=== PATIENT | female | born 1975 | race Caucasian/White ===

== ENCOUNTER → 2024-03-10 | Outpatient (CLI) | payer OTHER, SELFPAY ==
--- NOTE | 2024-03-10 | EMB_PTH ---
PATIENT: CHRIS ARITA LOC: [facility] #:[id number] AGE/SX: 48/F ROOM: RE03/10/[address]: MENDY [place] : 1975 BED: DIS: 03/10/2024 SPEC #: [id number] RECD: 03/10/24 14:41 STATUS: LAURA DAYO #: [id number] GILES: 03/10/24 00:[address]: Larisa Davis NP DEPT: SURGICAL PATHOLOGY RECD BY: Charbel Syed Tissues: Endometrium, NOS Procedures: Surgery Specimen Level IV HEADER OPERATION: Endometrial biopsy PRE-OP DIAGNOSIS: Postmenopausal bleeding- taking Provera TISSUE SUBMITTED: Endometrial lining MICROSCOPIC DIAGNOSIS Endometrium biopsy: Simple endometrial hyperplasia without atypia. LAW/ 03/14/2024 MICROSCOPIC DESCRIPTION Slides are reviewed. GROSS DESCRIPTION Received is one container labeled with the patient's name and not further designated. The specimen consists of multiple irregular fragments of delarosa-brown soft tissue that in aggregate measure 5.0 x 3.0 x 0.8 cm. The specimen is totally submitted in five cassettes. LAW/ 03/11/2024 TC:5 CPT:57312
== END | disposition home or self-care (01) ==
LOC: LABSPEC 14:48
PROVIDERS: Referring Provider Nurse Practitioner Women's Health; Visit Provider Nurse Practitioner Women's Health
DX: Z12.4 Encounter for screening for malignant neoplasm of cervix (principal); N95.0 Postmenopausal bleeding; N85.01 Benign endometrial hyperplasia
CPT/HCPCS: 88305

== ENCOUNTER → 2025-01-17 | Outpatient (CLI) | payer OTHER, SELFPAY ==
--- NOTE | 2025-01-17 13:17 | EMB_PTH ---
PATIENT: CHRIS ARITA LOC: [facility] U#:[id number] AGE/SX: 49/F ROOM: RE01/17/[address]: MENDY [place] : 1975 BED: DIS: 01/17/2025 SPEC #: [id number] RECD: 01/17/25 15:22 STATUS: LAURA DAYO #: [id number] GILES: 01/17/25 13:[address]: Larisa Davis NP DEPT: SURGICAL PATHOLOGY RECD BY: Wilian Miranda Tissues: A - Endometrium, NOS Procedures: Surgery Specimen Level IV HEADER OPERATION: Endometrial biopsy PRE-OP DIAGNOSIS: Abnormal uterine bleeding TISSUE SUBMITTED: A- Endometrial lining MICROSCOPIC DIAGNOSIS A. Uterus, endometrial lining, biopsy: * Inactive endometrium with decidualized stromal alteration and breakdown compatible with hormonal therapy effect MICROSCOPIC DESCRIPTION Slides are reviewed. GROSS DESCRIPTION A. Received in formalin in a container labeled with the patient's name, date of , and with no further designation are multiple red-delarosa fragments of soft tissue admixed with blood and mucus measuring 2.8 x 1.2 x 0.4 cm in aggregate. Submitted in toto in A1. [facility] 01-18-2025 CPT:53563
== END | disposition home or self-care (01) ==
LOC: LABSPEC 14:55
PROVIDERS: Referring Provider Nurse Practitioner Women's Health; Visit Provider Nurse Practitioner Women's Health
DX: N93.9 Abnormal uterine and vaginal bleeding, unspecified (principal)
CPT/HCPCS: 88305

== ENCOUNTER 2025-03-28 12:20 | Day surgery (SDC) | payer SELFPAY, OTHER ==
--- NOTE | 2025-02-21 10:03 | EKG12_ITS ---
Test Reason : PREOP Blood Pressure : */* mmHG Vent. Rate : 49 BPM Atrial Rate : 49 BPM P-R Int : 146 ms QRS Dur : 90 ms QT Int : 438 ms P-R-T Axes : 51 -12 59 degrees QTcB Int : 395 ms Marked sinus bradycardia Abnormal ECG Confirmed by Jim Brenner ([id number]), primer expeditor and drier ROCÍO ESPAÑA ([id number]) on 02/22/2025 10:14:27 AM Referred By: Alissa Hartley Confirmed By: Jim Brenner
[2025-02-21 10:33] LABS: Hematocrit 41.9 % (37-47); Hemoglobin 14.1 g/dL (12.0-15.0); Immature Granulocytes Count 0.020 X10^3/uL (0.0-0.0); Mean Corp Hgb Conc 33.7 g/dL (32-36); Mean Corpuscular Volume 88.0 fL (81-99); Mean Platelet Vol. 10.3 fl (6.2-12.0); NRBC Flagged by Analyzer 0 % (0-5); Platelet Count 250 K/mm3 (150-450); RBC Distribution Width CV 13.2 % (11.6-14.6); RBC Distribution Width SD 42.5 fl (35.1-43.9); Red Blood Count 4.76 M/mm3 (4.2-5.4); White Blood Count 5.5 K/mm3 (4.4-11.0)
[2025-02-21 11:24] LABS: AST(SGOT) 23 U/L (<=31); Alanine Aminotransfer ALT/SGPT 21 U/L (<=34); Albumin, Serum 4.6 g/dL (3.5-5.0); Alkaline Phosphatase 58 U/L (35-104); Anion Gap 11 (5-15); BUN 13 mg/dL (4-19); BUN/Creat Ratio 14.6 RATIO (10-20); Calcium,Total 9.7 mg/dL (7.6-11.0); Carbon Dioxide 24.6 mmol/L (21.0-32.0); Chloride 104 mmol/L (98-108); Globulin 2.7 g/dL (2.2-4.2); Glucose 82 mg/dL (70-99); Potassium 3.9 mmol/L (3.3-5.1)
[2025-03-28] VITALS (7 sets, daily range): BP systolic 132–141; BP diastolic 82–90; PULSE 59–67; RESP 16–20; TEMP 36.1–36.4; O2SAT 93–98; BMI 34.2
--- NOTE | 2025-03-28 12:17 | HP.PCM_ITS ---
History and Physical Date of Admission: 03/28/25 Intake Vital Signs 01/17/2513:05 02/16/2511:58 Height 5 ft 8 in 5 ft 8 in Weight: 219 lb 2 oz 219 lb 8 oz BMI 33.3 33.3 BP 166/100 H 170/96 H Intake Visit Reasons: surgical consult Player Manager Required: No Is patient in pain?: No Allergies No Known Allergies Allergy (Verified 02/16/25 12:04) Post menopausal: No Patient : No : No PFSH Medical History Breast abscess Endometriosis Surgical History S/P D&C (status post dilation and curettage) Family History Mother Breast cancer Social History adopted: No household members: spouse and children housing: house number of children: 4 current occupational status: unemployed pets and animals: Yes pets and animals: dog(s) history of recent travel: No sexually active: Yes Smoking Status: Never smoker second hand exposure: No alcohol intake: current alcohol intake frequency: a few times a week Alcohol type: wine substance use type: does not use well-balanced diet: daily or most days caffeine: Yes Type: coffee Number of servings: 2 what type of physical activity do you participate in: walking frequency: 3-4 times per week do you feel safe at home: Yes HPI surgical consult Details: CHRIS ARITA is a 49 year old who presents for persistent irregular bleeding. she had hyperplasia diagnosed last year and was treated with megace, but still has had irregular bleeding despite the therapy and the lining is thickened. repeat EMB was normal. she denies any pelvic pain or pressure or prolapse. Female Reproductive History Menopausal Symptoms: No night sweats History 4 Elective abortions Hx Para 4 Spontaneous abortions Hx # Term Pregnancies Ectopic pregnancies Hx # Pregnancies Multiple births # of living children Past Pregnancies Del. Date Name GA/Weeks Outcome Route Bth Weight Gen Labor Lgth Anesthesia Del Locatn Provider FOB Unknown [place] Unknown [place] Unknown Judith Unknown [place] ROS Const Constitutional: Denies fatigue, night sweats, weight gain or weight loss ENT ENT: Reports system reviewed and no additional complaints, except as documented Details: co headaches Cardio Card: Denies chest pain Resp Resp: Reports dyspnea; Denies cough GI GI: Reports as per HPI; Denies abdominal pain, constipation, nausea or vomiting : Denies nipple discharge, urinary frequency, urinary incontinence, urinary hesitancy, urinary urgency, vaginal discharge, vaginal dryness, vaginal odor or vaginal pruritus Musc Musc: Denies arthralgias, back pain or muscle weakness Skin Skin/Breast: Denies alopecia, change in hair, dry skin, breast mass, breast pain, breast skin changes or nipple discharge Neuro Neuro: Reports system reviewed and no additional complaints, except as documented Psych Psych: Reports system reviewed and no additional complaints, except as documented Endo Endo: Denies cold intolerance, excessive sweating, heat intolerance or polydipsia Joseph/Lymph Hematologic/Lymphatic: Denies easy bleeding, Denies easy bruising and Denies lymphadenopathy Exam Const General: cooperative, healthy appearing, comfortable and no acute distress Orientation: alert [facility] Head: normal to inspection and normocephalic Ears: hearing grossly normal bilaterally and external ears normal Nose: external nose normal and nares normal Face and sinus: normal facial exam Neck Neck: normal visual inspection and no lymphadenopathy Thyroid: thyroid normal Chest Chest palpation & inspection: normal inspection of the chest Resp Effort & Inspection: normal respiratory effort Auscultation: clear to auscultation bilaterally Cardio Rate: regular rate Rhythm: regular rhythm Heart Sounds: S1 normal and S2 normal GI Inspection: normal to inspection and non-distended Palpation: soft and no hepatosplenomegaly Musc Other: gross motor intact no deficits, full bilateral strength Skin General: no rashes or lesions noted Neuro General: patient alert, patient awake, moves all extremities and no focal motor deficits Motor: muscle tone normal throughout Extrem General: normal to inspection and no pedal edema Psych Appearance: grossly normal Mental Status: mental status grossly normal Affect: normal affect Speech and Movement: speech and movement normal Coding Level of Care Code Off vis,est,level 4 Diagnoses Abnormal uterine bleeding N93.9 Endometrial hyperplasia without atypia N85.00 Hypertension I10 Assessment and Plan Assessment and Plan (1) Abnormal uterine bleeding: Status: Acute Comment: US:20mm lining, EMB hyperplasia. persistent bleeding after hyperplasia treatment. (2) Endometrial hyperplasia without atypia: Status: Acute Comment: s/p megace. needs d and c hysteroscopy, to be both diagnostic and possibly therapeutic, wait 1-2 months after d and c and if still persistent bleeding consider IUD or hysterectomy. not an ablation candidate due to history of hyperplasia (3) Hypertension: Status: Chronic Comment: needs medical clearance Medications: Discontinued megestrol Discontinued Reason: Order Completed 40 mg PO BID 90 tabs 1RF Plan After discussing the patient's diagnosis and treatment plan options, patient wishes to proceed with surgical management. I have discussed with the patient the risks, benefits, and alternatives of the procedure which include but are not limited to risks of anesthesia, bleeding, infection, possible damage to bowel, bladder, or surrounding vasculature which could lead to additional surgery to evaluate any complications. Patient agrees to procedure and wishes to proceed. ACOG/uptodate references given for additional information regarding procedure.
[2025-03-28 12:46] LABS: Internal QC Validated? YES +Cl - CLEAR BKGD; Pregnancy, Urine Negative Negative; Record Kit Lot#,Urine Preg 962302
[2025-03-28] MEDS: Lactated Ringers 1,000 ML 15 ML IV (12:55)
--- NOTE | 2025-03-28 13:10 | PRE.ANES_ITS ---
ASA Classification* ASA Classification ASA Classification: 2 Assessment & Plan Anesthesia* Anesthesia Assessment Anesthesia Assessment: Discussed sedation and/or anesthesia options, risks, benefits, and alternatives with patient/parents/legal guardian/POA. Questions invited. The patient/parents/legal guardian/POA seems to understand and agrees to proceed with anesthesia plan. Reviewed the physical assessment, medical history, allergy history and patient home medications list prior to surgery/procedure/anesthetic and documented any changes. Performed airway and anesthesia risk assessments. Anesthesia Type Anesthesia Type: MAC History Source History Obtained from:: Patient and Chart Anesthesia Focused Assessment* Temperature: 97.5 F Pulse Rate: 67 Blood Pressure: 141/82 Respiratory Rate: 16 Pulse Ox: 98 Oxygen Delivery Method: Room Air Airway Assessment Mouth opens: >3 cm Mallampati Score: III Teeth Condition: Chipped/Broken (Patient has a couple chipped teeth.) and Missing (Patient has several missing teeth. All else are tight.) Neck Range of motion (ROM): Full ROM Labs Anesthesia Preop lab: CBC WBC 5.5 K/mm3 (4.4-11.0) 02/21/25 10:02/21/25 RBC 4.76 M/mm3 (4.2-5.4) 02/21/25 10:02/21/25 Hgb 14.1 g/dL (12.0-15.0) 02/21/25 10:02/21/25 Hct 41.9 % (37-47) 02/21/25 10:02/21/25 Plt Count 250 K/mm3 (150-450) 02/21/25 10:02/21/25 CHEMISTRY Potassium 3.9 mmol/L (3.3-5.1) 02/21/25 10:02/21/25 Sodium 140 mmol/L (133-145) 02/21/25 10:02/21/25 BUN 13 mg/dL (4-19) 02/21/25 10:02/21/25 Creatinine 0.91 mg/dL (0.70-1.20) 02/21/25 10:02/21/25 Glucose 82 mg/dL (70-99) 02/21/25 10:02/21/25 COAG Urine Test Negative Negative 03/28/25 12:30 03/28/25 Tst Clinic Negative 01/17/25 13:20 01/17/25 Pre-Assessment Diagnosis/Proposed Procedure Planned Operative Procedure(s): Hysteroscopy,Dilation and Curettage Anesthesia History Anesthesia History - wellness specialist: Anesthesia History - wellness specialist Hx Hospitalization No 03/14/25 09:04 Any Problems With Anesthesia No 03/14/25 09:04 Cholinesterase deficiency No 03/14/25 09:04 You/Your Family Experience No 03/14/25 09:04 fever (hyperthermia) with Relationship Recent Exposure to Contagious No 03/28/25 12:50 Disease Does patient have nerve No 03/14/25 09:04 stimulator Patient instructed to have device shut off --Does patient have Pacemaker No 03/28/25 12:50 or ICD? When Was Last Pacemaker Check QUESTION #4 FULL TEXT: You/Your Family Experience fever (hyperthermia) with Anesthesia Last Oral Intake Last Oral intake: Last Oral Intake NPO since 20:00 03/28/25 12:50 Meds taken in AM with sips of Yes 03/28/25 12:50 water? Meds patient instructed to amlodipine 03/28/25 12:50 take am of surgery Any additional information?: Yes NPO since: 06:00 (Patient took amlodipine with sip of water at 6 AM.) Meds taken in AM with sips of water?: Yes PONV PONV - wellness specialist: PONV - wellness specialist Female Yes 03/14/25 09:04 HX of Motion Sickness No 03/14/25 09:04 HX of N/V After Surgery No 03/14/25 09:04 Non-Smoker No 03/14/25 09:04 Duration of Surgery greater No 03/14/25 09:04 than 60 minutes Number of Risk Factors 1 03/14/25 09:04 PONV Score Low Risk 03/14/25 09:04 Height & Weight Height & Weight: Anesthesia: Height & Weight Height 5 ft 8 in 03/28/25 12:50 Weight: 102 kg 03/28/25 12:50 Body Mass Index (BMI) 34.2 03/28/25 12:50 Respiratory Assessment Respiratory Assessment - wellness specialist: Respiratory Tract Infection Hx - wellness specialist Hx Respiratory Tract Infection No 03/14/25 09:04 STOP Sleep Apnea STOP Sleep Apnea - wellness specialist: STOP Sleep Apnea - wellness specialist Hx Hypertension No 03/14/25 09:04 Hx Sleep Apnea No 03/14/25 09:04 CPAP BIPAP Do you snore loudly (louder No 03/14/25 09:04 than talking or can be heard Do you often feel tired/ No 03/14/25 09:04 fatigued/ sleepy during daytime? Has anyone observed you stop No 03/14/25 09:04 breathing during sleep? STOP Results Negative 03/14/25 09:04 QUESTION #5 FULL TEXT : Do you snore loudly (louder than talking or can be heard through closed doors)? Tobacco Use History Tobacco Use History - wellness specialist: Tobacco Use History - wellness specialist Tobacco Use Smoking Status Never smoker 03/14/25 09:04 Hx Tobacco Use No 03/14/25 09:04 Years Smoking Packs Smoked per Day Smoking Cessation Date was within the last 15 years Hx Smoking Cessation Date Hx Smoking Cessation Counseling Hematologic Medial History Hematologic Hx - wellness specialist: Hematologic Medical Hx - chart collector Hx of Blood Transfusion No 03/14/25 09:04 Hx of Transfusion in last 3 No 03/14/25 09:04 Months Date of Last Transfusion (if within last 3 months) Ever experience any problems No 03/14/25 09:04 with transfusion(s)? Specify any problems Hx of Preganancy in last 3 No 03/14/25 09:04 Months Nurse Filling Out Transfusion VCHRISTIN 03/14/25 09:04 & Questions: Date: 03/14/25 03/14/25 09:04 Time: 09:06 03/14/25 09:04 Patient unable to answer at this time (ie. confused, unrespo /Reproduction History /Reproductive History - wellness specialist: /Reproductive Hx- wellness specialist Hx Now No 03/14/25 09:04 Gestational Age (in weeks): EDC: Hx Hx Para Hx Section SAB No 03/14/25 09:04 Active Medications Active Medications: Current Medications Generic Name Dose Route Start Last Admin Trade Name Freq PRN Reason Stop Dose Admin Lactated Ringer's 1,000 mls @ 15 mls/hr 03/28/25 12:30 03/28/25 12:55 IV 15 mls/hr .Q48H NAIMA Administration PFSH Medical History (Updated 03/28/25 @ 15:[address] Alissa Hartley MD) Status post hysteroscopy Wears glasses Injury of head and neck Non-smoker Leg cramps Hypertension Breast abscess Endometriosis Home Medications ?Medication ?Instructions ?Recorded ?Last Taken ?Type amlodipine 5 mg tablet 5 mg PO DAILY 03/14/2503/28 History Allergy/AdvReac Type Severity Reaction Status Date / Time No Known Allergies Allergy Verified 03/28/25 12:48 Family History Mother Breast cancer Surgical History S/P D&C (status post dilation and curettage) Social History adopted: No household members: spouse and children housing: house number of children: 4 current occupational status: unemployed pets and animals: Yes pets and animals: dog(s) history of recent travel: No sexually active: Yes Smoking Status: Never smoker second hand exposure: No alcohol intake: current alcohol intake frequency: a few times a week Alcohol type: wine substance use type: does not use well-balanced diet: daily or most days caffeine: Yes Type: coffee Number of servings: 2 what type of physical activity do you participate in: walking frequency: 3-4 times per week do you feel safe at home: Yes Review of Systems (Anesthesia) ROS Narrative System reviewed and no additional complaints, except as documented.
--- NOTE | 2025-03-28 14:15 | EMB_PTH ---
PATIENT: CHRIS ARITA LOC: [facility] [place] U#:[id number] AGE/SX: 49/F ROOM: RE03/28/[address]: Dr. Alissa Hartley MD : 1975 BED: DIS: 03/28/2025 SPEC #: [id number] RECD: 03/28/25 16:31 STATUS: LAURA REBhupinder #: [id number] GILES: 03/28/25 14:[address]: Alissa Hartley DEPT: SURGICAL PATHOLOGY RECD BY: Wilian Miranda ENTERED: 03/29/25 09:01 SP TYPE: ENDOM BX/C SHER DR: Dr. Rodney Church MD Tissues: A - Endometrium, NOS Procedures: Surgery Specimen Level IV HEADER OPERATION: Hysteroscopy, D&C PRE-OP DIAGNOSIS: Abnormal uterine bleeding, endometrial hyperplasia without atypia TISSUE SUBMITTED: A- Endometrial curettings MICROSCOPIC DIAGNOSIS A. Endometrium, hysteroscopy with dilation and curettage: * Proliferative endometrium * Endocervical tissue with slight chronic endocervicitis MICROSCOPIC DESCRIPTION Slides are reviewed. GROSS DESCRIPTION A. Received in formalin labeled with the patient's name and date of . Designated as endometrial curettings is a 2.8 x 2.8 x 0.3 cm aggregate of pink- red tissue fragments and clotted blood. Entirely submitted in 2 cassettes. IN 03/29/2025 CPT:92217
[2025-03-28] MEDS: Lidocaine 1% (20 ml mdv) 20 ML Vial (14:36)
--- NOTE | 2025-03-28 14:46 | PCM.OPRPT ---
Problems Associated Problem List Diagnoses (1) Hypertension: (2) Endometrial hyperplasia without atypia: (3) Abnormal uterine bleeding: (4) Status post hysteroscopy: Multi Select Codes Urinary/Genital Urinary/Genital CPT Codes: 44812 Hysteroscopy,EMC, Polypectomy Operative Report (Standard) Operative Information Date of Procedure: 03/28/25 Pre-Operative Diagnosis: see problem list comments Post-Operative Diagnosis: same Surgery/Procedure Performed: dilation and curettage hysteroscopy adjunct psychology instructor: No Type of Anesthesia: IV Sedation and Local RN Documented Start/Stop Times: Operation Date: 03/28/25 14:15 Case Time Into Pre-Op 03/28/25 12:27 Out of Pre-Op 03/28/25 14:33 Anesthesia Start 03/28/25 14:36 Into Room 03/28/25 14:36 Procedure Start Time: 15:51 Procedure Stop Time: 15:59 Select all DRAINS/GRAFTS/IMPLANTS that apply: None Estimated Blood Loss: 50 Specimen collected: Yes Description of specimen(s) removed: endometrial curretings Description of surgery: Patient was prepped and draped in a normal sterile fashion under MAC anesthesia. A weighted speculum was placed in the vagina and the anterior lip of the cervix was grasped with a single-tooth tenaculum. A paracervical block was placed with 1% lidocaine. Cervix was progressively dilated to allow passage of a 7 mm hysteroscope. The lining was fully visualized and noted to have thickened lining . Uterine sounded to 8 cm. Curettage was performed and moderate amount tissue removed , sent to pathology. All instruments were removed from the vagina and excellent hemostasis was noted. Patient was awoken and taken to recovery in stable condition. Surgical Findings: thickened endometrial lining Complications Complications: No
--- NOTE | 2025-03-28 14:46 | PCM.DC ---
Discharge Instructions DC O2, CPAP, BIPAP needs Home O2 Discharge instructions: No Dressing / Incision Discharge Activity: Return to Normal Activity, May Shower and May Take a Tub Bath (after 1 week) May resume sexual activity in: 1-2 weeks Weight Bearing Status: Weight bearing as tolerated Lifting Restrictions: none Dressing / Incision Call your doctor if you observe: Fever of 101 or Higher, Using more than 1 pad per hour, Shortness of breath and Uncontrolled pain Follow Up Care Please Follow Up With: Alissa Hartley MD When: Call [phone] to schedule appointment. Test Results: Test results from this visit will be discussed in further detail at your follow-up appointment, if applicable. Discharge Plan Admission Attending Provider: Alissa Hartley Primary Care Provider: Rodney Church Instructions Print Language: [place] Islander Discharge Orders/Prescriptions Prescriptions: No Action amlodipine 5 mg tablet 5 mg PO DAILY Referrals / Follow Up: Rodney Church MD [Primary Care Provider] - Disposition Disposition (needs filled in before D/C Order can be placed): Home, Self Care
--- NOTE | 2025-03-28 15:14 | PCM.POST.ANE ---
Anesthesia: Postop Eval I Current Vital Signs Temperature: 97.1 F Pulse Rate: 67 Blood Pressure: 133/82 Respiratory Rate: 20 Pulse Ox: 95 Oxygen Delivery Method: Room Air Assessment Airway patent: Yes Spontaneous unlabored respirations: Yes Mental status: Awake and Calm nausea: No Vomiting: No Anesthesia Complication: No Fluid Hydration Crystalloid volume administer (ml): 500 Total IV fluid infused: 500 Progress Note Anesthesia document: Postop Eval 1 completed: Yes
--- NOTE | 2025-03-28 19:20 | POSTOPAN2_ITS ---
Anesthesia Postop Eval I Sum Postop Eval Completion status Anesthesia document: Postop Eval 1 completed: Yes Anesthesia Postop Eval I Summary Anesthesia Postop Eval I Summary: Anesthesia Postop Eval I: Assessment Summary Airway patent Yes 03/28/25 15:15 [email or web address] Spontaneous unlabored Yes 03/28/25 15:15 [email or web address] respirations Mental status Awake,Calm 03/28/25 15:15 [email or web address] nausea No 03/28/25 15:15 [email or web address] Vomiting No 03/28/25 15:15 [email or web address] Anesthesia Postop Eval I: Fluid Summary Crystalloid volume administer 500 03/28/25 15:15 [email or web address] (ml) Colloids volume administered ( ml) Blood Product volume administered (ml) Total IV fluid infused 500 03/28/25 15:15 [email or web address] Anesthesia Postop Eval I: Summary Notes Anesthesia Complication No 03/28/25 15:15 [email or web address] Anesthesia Complication Comment: Post-operative progress note Anesthesia: Postop Eval II Evaluation Mental status: Awake and Calm Pain Level: 1 nausea: No Vomiting: No Complications Anesthesia Complication: No
--- NOTE | 2025-03-28 19:20 | PCM.POSTANE2 ---
Anesthesia Postop Eval I Sum Postop Eval Completion status Anesthesia document: Postop Eval 1 completed: Yes Anesthesia Postop Eval I Summary Anesthesia Postop Eval I Summary: Anesthesia Postop Eval I: Assessment Summary Airway patent Yes 03/28/25 15:15 DATA CENTER [email or web address] Spontaneous unlabored Yes 03/28/25 15:15 DATA CENTER [email or web address] respirations Mental status Awake,Calm 03/28/25 15:15 DATA CENTER [email or web address] nausea No 03/28/25 15:15 DATA CENTER [email or web address] Vomiting No 03/28/25 15:15 DATA CENTER [email or web address] Anesthesia Postop Eval I: Fluid Summary Crystalloid volume administer 500 03/28/25 15:15 DATA CENTER [email or web address] (ml) Colloids volume administered ( ml) Blood Product volume administered (ml) Total IV fluid infused 500 03/28/25 15:15 DATA CENTER [email or web address] Anesthesia Postop Eval I: Summary Notes Anesthesia Complication No 03/28/25 15:15 DATA [email or web address] Anesthesia Complication Comment: Post-operative progress note Anesthesia: Postop Eval II Evaluation Mental status: Awake and Calm Pain Level: 1 nausea: No Vomiting: No Complications Anesthesia Complication: No
== END 2025-03-28 16:15 | disposition home or self-care (01) ==
LOC: SDC 12:22 → AC 12:24
PROVIDERS: Anesthesiology; PCP Family Medicine; Referring Provider Obstetrics & Gynecology; Visit Provider Obstetrics & Gynecology
PROC: 0UDB8ZZ Extraction of Endometrium, Via Natural or Artificial Opening Endoscopic (ICD-10-PCS; CPT 58558; principal; 2025-03-28 14:05)
DX: N93.8 Other specified abnormal uterine and vaginal bleeding (principal); N85.01 Benign endometrial hyperplasia; N72 Inflammatory disease of cervix uteri; I10 Essential (primary) hypertension; Z79.899 Other long term (current) drug therapy
CPT/HCPCS: 58558; 00952; 36415; 80053; 81025; 85025; 86850; 86900; 86901; 88305; 93005

== ENCOUNTER → 2025-04-28 | Outpatient (CLI) | payer SELFPAY, OTHER ==
--- NOTE | 2025-04-28 08:00 | BI_ITS ---
EXAM: SCRN MAMM (CAD)W/PEPE BILAT DATE: 04/28/2025 CLINICAL HISTORY: F, Age 49 y/o , SCREENING MAMMOGRAM TECHNIQUE: SCRN MAMM (CAD)W/PEPE BILAT COMPARISON: No priors available. FINDINGS: TISSUE DENSITY: There are scattered areas of fibroglandular density. Bilateral Breast Mammographic Findings: No significant masses, calcifications or other abnormalities are identified. BI/SCRN MAMM (CAD)W/PEPE BILAT IMPRESSION: There is no mammographic evidence of malignancy. OVERALL FINAL ASSESSMENT BI-RADS 1: NEGATIVE. RECOMMENDATION: Routine annual follow-up in 1 Year A letter with findings and recommendations will be mailed to the patient. Reading Location: [id number]
--- OUTSIDE RECORDS SUMMARY | 2025-04-28 08:27 | XMS RPT_ITS | CCD ---
Author Organization [facility] CliniSy[facility] Care Team Providers Care Hair Machine Operator Name Role Phone MOOSE BERMEO Attending Unavailable CORKY MUHAMMAD Admitting Unavailable CORKY MUHAMMAD Primary Care Unavailable CORKY MUHAMMAD Attending Unavailable JOSE FRANCISCO SABA Consulting Unavailable JOSE FRANCISCO SABA Referring Unavailable PROVIDER, UNKNOWN Consulting Unavailable PROVIDER, UNKNOWN Consulting Unavailable PROVIDER, UNKNOWN Consulting Unavailable Ryan FALAFEL CART COOK-CLarisa Attending Provider Ryan FALAFEL CART COOK-CLarisa Referring Provider [phone] Odilia MILNER, Dr. Maxwell Attending Provider JEAN-CLAUDE MILNER, MARCIN Vazquez Unavailable MOOSE BERMEO MD Unavailable Josie Lundberg RN Unavailable Unavailable ANGEL CHASE Unavailable Unavailable Unavailable Unavailable HERO JACOB-CNATALIYA Unavailable GLENIS BURT RN Unavailable Unavailable Unavailable Unavailable Jean-Claude MILNER, Dr. Stevens Primary Care Provider Dr. Jim Brenner MD Attending Provider Dr. Alissa Hartley MD Referring Provider [phone] Dr. Alissa Hartley MD Other Provider Jean-Claude MILNER, Dr. Stevens Referring Provider [phone] Alissa Hartley Attending Unavailable Alissa Hartley Referring Unavailable Alissa Hartley Referring Unavailable Alissa Hartley Attending Unavailable Marcin Bermeo Primary Care Unavailable Marcin Bermeo Primary Care Unavailable Marcin Bermeo Referring Unavailable Alissa Hartley Attending Unavailable Marcin Bermeo Primary Care Unavailable Jim Brenner Attending Unavailable Alissa Hartley [facility]erring [facility] Alissa Hartley Referring Unavailable Alissa Hartley Consulting Unavailable Alissa Hartley Attending Unavailable Alissa Hartley Attending Unavailable Ryan FALAFEL CART COOK, Larisa Attending Unavailable [facility] Care Unavailable Alissa Hartley Attending Unavailable Alissa Hartley Referring Unavailable [place] FALAFEL CART COOK, Larisa Attending Unavailable [place] FALAFEL CART COOK, Larisa Referring Unavailable Allergies Allergy Classification Reported Allergen(s) Allergy Type Date of Onset Reaction(s) Facility (12 sources) Megestrol Drug Allergy 02-20-2025 [facility]. Medications Current Medications Medication Drug Class(es) Dates Sig (Normalized) Sig (Original) doxycycline monohydrate 100 mg oral capsule (1 source) Tetracycline-clas s Drug Start: 04-07-2025 take 1 capsule by mouth twice daily Doxycycline Monohydrate 100 mg capsule Active 100 mg PO TWICE A DAY 28 0 April 07, 2025 12:00am Completed/Discontinued Medications Medication Drug Class(es) Dates Sig (Normalized) Sig (Original) amLODIPine 5 mg oral tablet (7 sources) Dihydropyridine Calcium Channel Edvin Start: 02-27-2025 End: 04-10-2025 take 1 tablet by mouth once daily Amlodipine 5 mg tablet Discontinued 5 mg PO DAILY March 14, 2025 12:00am April 10, 2025 8:37am amoxicillin 500 mg oral capsule (14 sources) Penicillin-class Antibacterial Start: 04-05-2018 End: 11-22-2018 take 1 capsule by mouth three times daily Amoxicillin 500 MG Oral Capsule ; 1 (one) Capsule three times daily for 7 days Quantity: 21 {Capsule} Refills: 0 Ordered: 22-Nov-2018 VIDAL Lundberg Start: 05-Apr-2018 End: 22-Nov-2018 Status: Inactive Comments: medication to be dispensed in office Comment on above: medication to be dis pensed in office ibuprofen 200 mg oral tablet (14 sources) Nonsteroidal Anti-inflammatory Drug ADVIL, 200MG (Oral Tablet) ; prn (200 MG) Status: Inactive megestrol acetate 40 mg oral tablet (12 sources) Progestin Start: 01-09-2025 End: 02-16-2025 take 1 tablet by mouth twice daily Megestrol 40 mg tablet Discontinued 40 mg PO TWICE A DAY 90 1 January 09, 2025 10:46am February 16, 2025 12:19pm Start: 03-14-2024 End: 01-09-2025 take 1 tablet by mouth once daily Megestrol 40 mg tablet Discontinued 40 mg PO DAILY 90 0 September 12, 2024 10:48am January 09, 2025 10:47am naproxen 500 mg oral tablet (14 sources) Nonsteroidal Anti-inflammatory Drug Start: 04-20-2017 End: 04-05-2018 take 1 tablet by mouth twice daily as needed Naproxen 500 MG Oral Tablet ; 1 (one) Tablet two times daily, as needed for 0 days Quantity: 30 {Tablet} Refills: 2 Ordered: 05-Apr-2018 Start: 20-Apr-2017 End: 05-Apr-2018 Status: Inactive Comments: Medication taken as needed. Comment on above: Medication taken as needed. predniSONE 10 mg oral tablet (14 sources) Start: 09-03-2015 End: 09-15-2015 take 1 tablet by mouth once daily at mealtime PREDNISONE (BEE), 10MG (Oral Tablet) ; 1 (one) Tablet take as directed for 12 days Quantity: 30 {Tablet} Refills: 0 Ordered: 20-Apr-2017 MD MARCIN BERMEO Start: 03-Sep-2015 End: 15-Sep-2015 Status: Inactive Comments: Days 1,2,3 = 4 tabs daily; Days 4, 5, 6 = 3 tabs daily; Days 7, 8, 9 = 2 tabs daily; Days 10,11,12 = 1 tab daily; Take with meals. May take each day's dose at one time.meds to be dispensed in office Comment on above: Days 1,2,3 = 4 tabs daily; Days 4, 5, 6 = 3 tabs daily; Days 7, 8, 9 = 2 tabs daily; Days 10,11,12 = 1 tab daily; Take with meals. May take each day's dose at one time.meds to be dispensed in office Problems Active Problems Problem Classification Problem Date Documented Date Episodic/Chronic Cardiac dysrhythmias (10 sources) Sinus bradycardia; Translations: [Bradycardia, unspecified] 02-27-2025 Episodic Essential hypertension (20 sources) Hypertensive disorder; Translations: [Essential (primary) hypertension] Onset: 04-09-2025 02-16-2025 Chronic Comment on above: needs medical cleara nce Mycoses (16 sources) Pityriasis versicolor; Translations: [Pityriasis versicolor] 11-22-2018 Episodic Comment on above: Chest. Nonmalignant breast conditions (16 sources) Inflammatory disorder of breast; Translations: [Mastitis without abscess] 04-05-2018 Episodic Comment on above: Right. Other connective tissue disease (14 sources) Plantar fasciitis of left foot; Translations: [Plantar fascial fibromatosis] 04-20-2017 Episodic Other female genital disorders (13 sources) Endometrial hyperplasia; Translations: [Endometrial hyperplasia, unspecified] 03-14-2024 Chronic Comment on above: megestrol daily X 6 mo then repeat EMB megestrol daily X 6 mo then repeat EMB. needs d and c hysteroscopy. not an ablation candidate. s/p megace. needs d and c hysteroscopy, to be both diagnostic and possibly therapeutic, wait 1-2 months after d and c and if still persistent bleeding consider IUD or hysterectomy. not an ablation candidate due to history of hyperplasia Other female genital disorders (9 sources) Abnormal uterine bleeding; Translations: [Abnormal uterine and vaginal bleeding, unspecified] 03-14-2024 Chronic Comment on above: US:20mm lining, EMB US:20mm lining, EMB hyperplasia. persistent bleeding after hyperplasia treatment. Other female genital disorders (1 source) Other specified abnormal uterine and vaginal bleeding; Translations: [Other specified abnormal uterine and vaginal bleeding] Onset: 04-09-2025 Chronic Other female genital disorders (2 sources) Abnormal uterine and vaginal bleeding, unspecified; Translations: [Abnormal uterine and vaginal bleeding, unspecified] Onset: 01-23-2025 Chronic Other female genital disorders (1 source) Endometrial hyperplasia, unspecified; Translations: [Endometrial hyperplasia, unspecified] Onset: 04-09-2025 Chronic Other injuries and conditions due to external causes (20 sources) H/O: injury; Translations: [Personal history of other (healed) physical injury and trauma] 04-05-2018 Episodic Comment on above: Right breast. With A bscess. Other screening for suspected conditions (not mental disorders or infectious disease) (20 sources) Cancer cervix screening status; Translations: [Encounter for screening for malignant neoplasm of cervix] Onset: 04-20-2025 11-22-2018 Episodic Residual codes; unclassified (20 sources) H/O: Disorder; Translations: [Personal history of other specified conditions] 11-22-2018 Episodic Comment on above: Right breast. Residual codes; unclassified (4 sources) Past history of procedure; Translations: [Other specified postprocedural states] 03-28-2025 Episodic Comment on above: d and c for AUB hype rplasia SM Spondylosis; intervertebral disc disorders; other back problems (14 sources) Cervical radiculopathy; Translations: [Radiculopathy, cervical region] 09-03-2015 Episodic Unclassified (14 sources) 11-22-2018 Comment on above: 4. Unclassified (14 sources) Para 11-22-2018 Comment on above: 4. Past or Other Problems Problem Classification Problem Date Documented Da te Episodic/Chronic Unclassified (14 sources) !Patient notification of lab results - Bermeo. The test(s) that you had done were/was a pap test (screen for cervical cancer). The results of your testing were normal . 11-30-2018 Unclassified (14 sources) !Patient notification of lab results - Bermeo. The test(s) that you had done were/was an iron level, a CBC (checks for anemia and infection), a CMP (kidneys, liver, nutrition, sugar), a lipid panel (cholesterol and triglycerides) and a TSH (thyroid). The results of your testing were normal . Please note that we have included copies of your results. 11-22-2018 Unclassified (13 sources) Physical examination - The patient is here for a annual physical. Note for Physical examination: . 11-22-2018 Unclassified (13 sources) [ADDITIONAL REASON] Immunization - Immunizations discussed with patient/ parent: yes. 11-22-2018 Unclassified (14 sources) Breast pain - The onset of the breast pain has been acute and has been occurring in a persistent pattern for days (2). The location of the pain is in the right subareola. Note for Breast pain: . 04-05-2018 Unclassified (14 sources) Foot pain - The foot pain has been occurring in an intermittent pattern for months. The pain affects the left foot. The foot pain is described as being located in the heel. The foot pain is aggravated by physical activity. Note for Foot pain: . 04-20-2017 Unclassified (14 sources) Neck Pain - Symptoms include shoulder pain. Symptoms are located in the left posterior neck. The pain radiates to the left shoulder and left arm. Onset was 2 week(s) ago. Note for Neck pain: had seen chiropractor 09-03-2015 Unclassified (12 sources) HYPERTENSION - The symptoms have been associated with dyspnea (Walking uphill/stairs), while the symptoms have not been associated with chest pain or edema. Note for HYPERTENSION: Pt states BP has been high and needs a D&C d/t abnormal uterine bleeding. Was taking Megace and did not feel well while taking (per Dr. Hartley), feel this caused HTN. D/C'd megase. Minimal bleeding at present. Scheduled 03/28/25 @ [facility]. Pretesting tomorrow 02/21. Checks BP regularly and has records w/ her. 02-20-2025 Unclassified (1 source) Immunization - Immunizations discussed with patient/ parent: yes. 11-22-2018 Unclassified (1 source) [ADDITIONAL REASON] Physical examination - The patient is here for a annual physical. Note for Physical examination: . 11-22-2018 Unclassified (5 sources) Pre-Op Visit - The procedure scheduled is a D & C on 03/28/25. [place] [facility] Note for Pre-op visit: surgery is for Abnormal Uterine Bleeding 02-27-2025 Results Test Name Value Interpretation Reference Range Facility Tubing Supervisor Office Visit Reporton 04-10-2025 Tubing Supervisor Office Visit Report [facility] [address], [address] [place] [address] OFFICE VISIT Date of Service: 04/10/25 MR#: [id number] Acct: [id number] Name: CHRIS ARITA Rep #: [id number] : 1975 Provider: Dr. Alissa benjamin MD Age/Sex: 49/F Location: [facility] [place] Status: Signed Intake Vital Signs 02/16/25 11:58 03/28/25 12:50 04/10/25 08:34 04/10/25 08:35 Height 5 ft 8 in 5 ft 8 in 5 ft 8 in 5 ft 8 in Weight: 228 lb BMI 34.7 BP 149/90 H Intake Visit Reasons: 2 week post-op D C Infection Control Preventionist Required: No Is patient in pain?: No Allergies No Known Allergies Allergy (Verified 04/10/25 08:37) Medications ???Medication ???Instructions ???Recorded ???Confirmed ???Type doxycycline monohydrate 100 mg 100 mg PO BID #28 caps 04/07/25 Rx capsule Is last menstrual period known: No Patient : No : No PFSH Medical History Status post hysteroscopy Wears glasses Injury of head and neck Non-smoker Leg cramps Hypertension Breast abscess Endometriosis Surgical History S/P D C (status post dilation and curettage) Family History Mother Breast cancer Social History adopted: No household members: spouse and children housing: house number of children: 4 current occupational status: unemployed pets and animals: Yes pets and animals: dog(s) history of recent travel: No sexually active: Yes Smoking Status: Never smoker second hand exposure: No alcohol intake: current alcohol intake frequency: a few times a week Alcohol type: wine substance use type: does not use well-balanced diet: daily or most days caffeine: Yes Type: coffee Number of servings: 2 what type of physical activity do you participate in: walking frequency: 3-4 times per week do you feel safe at home: Yes HPI 2 week post-op D C Details: CHRIS ARITA is a 49 year old who presents for postop visit doing well having apakren now will see what her cycles do the next few months, fu for annual History 4 Elective abortions Hx Para 4 Spontaneous abortions Hx # Term Pregnancies Ectopic pregnancies Hx # Pregnancies Multiple births # of living children Past Pregnancies Del. Date Name GA/Weeks Outcome Route Bth Weight Gen Labor Lgth Anesthesia Del Locatn Provider FOB Unknown Tangela Unknown Raulito Unknown Judith Unknown Violette ROS Const Constitutional: Reports system reviewed and no additional complaints, except as documented GI GI: Denies abdominal pain, cramping, nausea or vomiting : Denies pelvic pain, urinary frequency, urinary incontinence, urinary urgency, vaginal discharge, vaginal dryness or vaginal odor Exam Const General: cooperative, healthy appearing, comfortable and no acute distress Coding Level of Care Code No Charge Diagnoses Abnormal uterine bleeding N93.9 Endometrial hyperplasia without atypia N85.00 Hypertension I10 Status post hysteroscopy Z98.890 Assessment and Plan Assessment and Plan (1) Abnormal uterine bleeding: Status: Acute Comment: US:20mm lining, EMB hyperplasia. persistent bleeding after hyperplasia treatment. (2) Endometrial hyperplasia without atypia: Status: Acute Comment: s/p megace. needs d and c hysteroscopy, to be both diagnostic and possibly therapeutic, wait 1-2 months after d and c and if still persistent bleeding consider IUD or hysterectomy. not an ablation candidate due to history of hyperplasia (3) Hypertension: Status: Chronic Comment: needs medical clearance (4) Status post hysteroscopy: Status: Acute Comment: d and c for AUB hyperplasia SM Orders: Orders SCRN MAMM (CAD)W/PEPE SWAN Today Z12.31 - Encounter for screening mammogram for malignant neoplasm of breast Plan doxycycline course. disucssed fu in 4 months and interventions with medciaitons or hyst if desired if persistent AUB 04/10/25 0940 Date Alissa Hartley MD Cosign Signature: Date (if applicable) CC: Normal [facility] Discharge Instructionon 03-14 Discharge Instruction [facility] Medical Records Department [address] [place] [address] Instructions for Home/Discharge Instructions 03/28/25 1446 MR#: [id number] Acct: [id number] Name: CHRIS ARITA Rep #: [id number] : 1975 49 From: Alissa Hartley MD PCP: Dr. Marcin Bermeo MD Status:REG SDC Discharge Instructions DC O2, CPAP, BIPAP needs Home O2 Discharge instructions: No Dressing / Incision Discharge Activity: Return to Normal Activity, May Shower and May Take a Tub Bath (after 1 week) May resume sexual activity in: 1-2 weeks Weight Bearing Status: Weight bearing as tolerated Lifting Restrictions: none Dressing / Incision Call your doctor if you observe: Fever of 101 or Higher, Using more than 1 pad per hour, Shortness of breath and Uncontrolled pain Follow Up Care Please Follow Up With: Alissa Hartley MD When: Call [phone] to schedule appointment. Test Results: Test results from this visit will be discussed in further detail at your follow-up appointment, if applicable. Discharge Plan Admission Attending Provider: Alissa Hartley Primary Care Provider: Marcin Bermeo Instructions Print Language: Venezuelan Discharge Orders/Prescriptions Prescriptions: No Action amlodipine 5 mg tablet 5 mg PO DAILY Referrals / Follow Up: Marcin Bermeo MD [Primary Care Provider] - Disposition Disposition (needs filled in before D/C Order can be placed): Home, Self Care 03/28/25 1504 Alissa Hartley MD CC: Dr. Marcin Bermeo MD Signed [facility] MR/POSTOP.[facility] 03-28-2025 MR/POSTOP.[facility] Medical Records Department [address] [place] [address] Anesthesia Postop Eval I 03/28/25 1514 MR#: [id number] Acct: [id number] Name: CHRIS ARITA Rep #: [id number] : 1975 49 From: Sukh Hicks CRNA PCP: Dr. Marcin Bermeo MD Status:REG SDC Y Race: C Location: [place] [address] Anesthesia: Postop Eval I Current Vital Signs Temperature: 97.1 F Pulse Rate: 67 Blood Pressure: 133/82 Respiratory Rate: 20 Pulse Ox: 95 Oxygen Delivery Method: Room Air Assessment Airway patent: Yes Spontaneous unlabored respirations: Yes Mental status: Awake and Calm nausea: No Vomiting: No Anesthesia Complication: No Fluid Hydration Crystalloid volume administer (ml): 500 Total IV fluid infused: 500 Progress Note Anesthesia document: Postop Eval 1 completed: Yes 03/28/25 1515 Date Sukh Hicks ASSEMBLER FINGER BUFFS Cosigner Signature: Date CC: Signed Normal [facility] MR/[id number] 03-28-2025 MR/POSTOPAN2 [facility] Medical Records Department [address] [place] [address] Anesthesia Postop Eval II 03/28/251919 MR#: [id number] Acct: [id number] Name: CHRIS ARITA Rep #: [id number] : 1975 49 From: Pancho Hendrickson MD PCP: Dr. Marcin Bermeo MD Status:[facility] Y Race: C [place] [facility] [place]hesia Postop Eval I Sum Postop Eval Completion status Anesthesia document: Postop Eval 1 completed: Yes Anesthesia Postop Eval I Summary Anesthesia Postop Eval I Summary: Anesthesia Postop Eval I: Assessment Summary Airway patent Yes 03/28/25 15:15 ASSEMBLER FINGER BUFFS.PKEL Spontaneous unlabored Yes 03/28/25 15:15 ASSEMBLER FINGER BUFFS.PKEL respirations Mental status Awake,Calm 03/28/25 15:15 ASSEMBLER FINGER BUFFS.PKEL nausea No 03/28/25 15:15 ASSEMBLER FINGER BUFFS.PKEL Vomiting No 03/28/25 15:15 ASSEMBLER FINGER BUFFS.PKEL Anesthesia Postop Eval I: Fluid Summary Crystalloid volume administer 500 03/28/25 15:15 ASSEMBLER FINGER BUFFS.PKEL (ml) Colloids volume administered ( ml) Blood Product volume administered (ml) Total IV fluid infused 500 03/28/25 15:15 ASSEMBLER FINGER BUFFS.PKEL Anesthesia Postop Eval I: Summary Notes Anesthesia Complication No 03/28/25 15:15 ASSEMBLER FINGER BUFFS.PKEL Anesthesia Complication Comment: Post-operative progress note Anesthesia: Postop Eval II Evaluation Mental status: Awake and Calm Pain Level: 1 nausea: No Vomiting: No Complications Anesthesia Complication: No 07/15/25 1920 Date Pancho Faria Signature: Date CC: Signed Normal [facility] Operative Reporton 5 Operative Report [facility] Medical Records Department [address] [place] [address] Operative Report 03/28/25 1446 MR#: [id number] Acct: [id number] Name: CHRIS ARITA Rep #: [id number] : 1975 49 From: Alissa Hartley MD PCP: Dr. Marcin Bermeo MD Status:[facility] Location: [place] [address] Problems Associated Problem List Diagnoses (1) Hypertension: (2) Endometrial hyperplasia without atypia: (3) Abnormal uterine bleeding: (4) Status post hysteroscopy: Multi Select Codes Urinary/Genital Urinary/Genital CPT Codes: 23700 Hysteroscopy,EMC, Polypectomy Operative Report (Standard) Operative Information Date of Procedure: 03/28/25 Pre-Operative Diagnosis: see problem list comments Post-Operative Diagnosis: same Surgery/Procedure Performed: dilation and curettage hysteroscopy forms analyst: No Type of Anesthesia: IV Sedation and Local RN Documented Start/Stop Times: Operation Date: 03/28/25 14:15 Case Time Into Pre-Op 03/28/25 12:27 Out of Pre-Op 03/28/25 14:33 Anesthesia Start 03/28/25 14:36 Into Room 03/28/25 14:36 Procedure Start Time: 15:51 Procedure Stop Time: 15:59 Select all DRAINS/GRAFTS/IMPLANTS that apply: None Estimated Blood Loss: 50 Specimen collected: Yes Description of specimen(s) removed: endometrial curretings Description of surgery: Patient was prepped and draped in a normal sterile fashion under MAC anesthesia. A weighted speculum was placed in the vagina and the anterior lip of the cervix was grasped with a single-tooth tenaculum. A paracervical block was placed with 1% lidocaine. Cervix was progressively dilated to allow passage of a 7 mm hysteroscope. The lining was fully visualized and noted to have thickened lining . Uterine sounded to 8 cm. Curettage was performed and moderate amount tissue removed , sent to pathology. All instruments were removed from the vagina and excellent hemostasis was noted. Patient was awoken and taken to recovery in stable condition. Surgical Findings: thickened endometrial lining Complications Complications: No 03/28/25 1503 Cosigner Signature (if applicable): CC: Dr. Alissa Hartley MD; Dr. Marcin Bermeo MD Signed Normal [facility] ,Urineon 03-28-2025 Beta HCG ( test) Ql (U) Negative Normal [facility] [employer]; [facility] [employer] [facility] [employer] Work Phone: Comment on above: Result Comment: Very dilute urine specimens, as indicated by a low specific gravity, may not contain medical field representative levels of hCG. If is still suspected, a first morning urine specimen should be collected 48 hours later and tested. Performed By: #### L 400.7600 #### [facility] [address] [place], [place], [address] Surgery Specimen Level Regan 03-28-2025 Surgery Specimen Level IV ---- Patient Age/Sex Location Account Attending Physician ---- CHRIS ARITA 49/F [facility] [id number]. Alissa Hartley MD ---- Specimen: [id number] Received: 03/28/25 Status: LAURA Ryder Num: [id number] Spec Type: ENDOM BX/C Subm Dr: Dr. Alissa Hartley MD HEADER OPERATION: Hysteroscopy, D C PRE-OP DIAGNOSIS: Abnormal uterine bleeding, endometrial hyperplasia without atypia TISSUE SUBMITTED: A- Endometrial curettings ---- MICROSCOPIC DIAGNOSIS A. Endometrium, hysteroscopy with dilation and curettage: * Proliferative endometrium * Endocervical tissue with slight chronic endocervicitis MICROSCOPIC DESCRIPTION Slides are reviewed. GROSS DESCRIPTION A. Received in formalin labeled with the patient's name and date of . Designated as endometrial curettings is a 2.8 x 2.8 x 0.3 cm aggregate of pink- red tissue fragments and clotted blood. Entirely submitted in 2 cassettes. AK 03/29/2025 CPT:35559 ---- Patient Age/Sex Location Account Attending Physician ---- JUAN JCHRIS J 49/F [facility] [id number]. Alissa Hartley MD ---- Signed (signature on file) Dr. Edu Anderson MD 04/05/25 0927 ---- Normal [facility] Comment on above: Performed By: #### L 100.0100, L500.4050, BTS #### [facility] [address] [place], [place] [address]lis[place]. [place], [place], [address] Urine testOrdered By: Pancho Hendrickson on 03-28-2025 HCG ( test) Ql (U) Negative [facility] Comment on above: Very dilute urine sp ecimens, as indicated by a low specificgravity, may not contain medical field representative levels of hCG. If is still suspected, a first morning urinespecimen should be collected 48 hours later and tested. Electrocardiogram reportOrde red By: Jim Brenner on 02-22-2025 EKG study [facility] [facility] [address] [place] [address] 12 Lead EKG 02/21/25 1007 MR#: [id number] Acct: [id number] Name: CHRIS ARITA Rep #:[id number] : 1975 49 From: Jim manzano MD Attending Dr: Dr. Alissa Hartley MD Status: PRE SDC Ordering Dr: Alissa Hartley MD Dragan e: 02/21/25 Location: SDC Sex: F C Admitted: Test Reason : PREOP Blood Pressure : */* mmHG Vent. Rate : 49 BPM Atrial Rate : 49 BPM P-R Int : 146 ms QRS Dur : 90 ms QT Int : 438 ms P-R-T Axes : 51 -12 59 degrees QTcB Int : 395 ms Marked sinus bradycardia Abnormal ECG Confirmed by Jim Brenner ([id number]), content editor [place] ([id number]) on 02/22/2025 10:14:27 AM Referred By: Alissa Hartley Confirmed By: Jim Brenner 02/22/25 1014 Date _ Jim Brenner MD CC: Dr. Alissa Hartley MD; Dr. Marcin Bermeo MD ~ Signed [facility] Work Phone: 12 Lead EKGon 02-21-2025 12 Lead EKG [facility] [address] [place] [address] 12 Lead EKG 02/21/25 1007 MR#: [id number] Acct: [id number] Name: CHRIS ARITA Rep #: [id number] : 1975 49 From: Jim Brenner MD Attending Dr: Dr. Alissa Hartley MD Status: PRE SDC Ordering Dr: Alissa Hartley MD Date: 02/21/25 [place] [facility] [place]: F C Admitted: Test Reason : PREOP Blood Pressure : */* mmHG Vent. Rate : 49 BPM Atrial Rate : 49 BPM P-R Int : 146 ms QRS Dur : 90 ms QT Int : 438 ms P-R-T Axes : 51 -12 59 degrees QTcB Int : 395 ms Marked sinus bradycardia Abnormal ECG Confirmed by Jim Brenner ([id number]), content editor [place] ([id number]) on 02/22/2025 10:14:27 AM Referred By: Alissa Hartley Confirmed By: Jim Brenner 02/22/25 1014 Date Jim Brenner MD CC: Dr. Alissa Hartley MD; Dr. Marcin Bermeo MD Signed Normal [facility] Absolute lymphocyte countOrd ered By: Alissa Hartley on 02-21-2025 Lymphocytes Auto (Unsp spec) [#/Vol] 1.87 10*3/uL 0.83-4.51 [facility] Absolute neutrophil countOrd ered By: Alissa Hartley on 02-21-2025 Neutrophils (Bld) [#/Vol] 3.0 10*3/uL 2.0-7.7 [facility] Anion gap in Serum or Plasma Ordered By: Alissa Hartley on 02-21-2025 Anion gap [Moles/Vol] 11 mmol/L 5-15 [facility] Automated blood erythrocyte counton 02-21-2025 RBC (Bld) [#/Vol] 4.76 10*6/uL Normal 4.2-5.4 [facility].; [facility] Work Phone: Comment on above: Performed By: #### L 100.0100, L500.4050, BTS #### [facility] [address] [place], [address] Automated blood hematocrit ( percentage)on 02-21-2025 Hematocrit (Bld) [Volume fraction] 41.9 % Normal 37-47 [facility]; [facility] Work Phone: Comment on above: Performed By: #### L 100.0100, L500.4050, BTS #### [facility] [address] [place], [address] Automated lymphocyte count a s percentage of total leukocytesOrdered By: Alissa Hartley on 02-21-2025 Lymphocytes/100 WBC Auto (Unsp spec) 34.2 % [facility] BUN/creatinine ratioOrdered By: Alissa Hartley on 02-21-2025 Urea nitrogen/Creatinine [Mass ratio] 14.6 mg/mg 07-03 [facility] Basophil percentageon 2024 Basophils/100 WBC (Bld) 0.5 % Normal 0-1 [facility]; [facility] Work Phone: Comment on above: Performed By: #### L 100.0100, L500.4050, BTS #### [facility] [address] [place] [place], [place], [id number] [phone] Bilirubin, totalon Bilirubin [Mass/Vol] 0.48 mg/dL Normal 0.00-1.30 [facility]; [facility] Work Phone: Comment on above: Performed By: #### L 100.0100, L500.4050, BTS #### [facility] [address] [place], [address] CBC W/Diff, Automatedon 02-12 Absolute Lymph 1.87 X10 3/uL Normal 0.83-4.51 [facility] Comment on above: Performed By: #### L 100.0100, L500.4050, BTS #### [facility] [address] [place], [address] Absolute Neut 3.0 X10 3/uL Normal 2.0-7.7 [facility] Comment on above: Performed By: #### L 100.0100, L500.4050, BTS #### [facility] [address] [place], [address] IG% 0.400 Normal 0.0-0.9 [facility]; [facility] Work Phone: Comment on above: Result Comment: IG% - Immature Granulocytes (promyelocytes, myelocytes and metamyelocytes) > 1% indicates that a LEFT SHIFT is Present. Performed By: #### L 100.0100, L500.4050, BTS #### [facility] [address] [place], [address] Lymphocytes/100 WBC (Bld) 34.2 % Normal 19-41 [facility]; [facility] Work Phone: Comment on above: Performed By: #### L 100.0100, L500.4050, BTS #### [facility] [address] [place], [address] Nucleated RBC (Bld) [#/Vol] 0 10*3/uL Normal 0-5 [facility]; [facility] Work Phone: Comment on above: Performed By: #### L 100.0100, L500.4050, BTS #### [facility] [address] [place], [address] RDW SD 42.5 fL Normal 35.1-43.9 [facility]; [facility] Work Phone: Comment on above: Performed By: #### L 100.0100, L500.4050, BTS #### [facility] [address] [place], [address] Carbon dioxide, total [Moles /volume] in Central venous bloodon 02-21-2025 CO2 [Moles/Vol] 24.6 mmol/L Normal 21.0-32.0 [facility]; [facility] Work Phone: Comment on above: Performed By: #### L 100.0100, L500.4050, BTS #### [facility] [address] [place], [place], [address] Chloride assayon 02-21-2025 Chloride [Moles/Vol] 104 mmol/L Normal 98-108 [facility]; [facility] Work Phone: Comment on above: Performed By: #### L 100.0100, L500.4050, BTS #### [facility] [address] [place], [place], [id number] Comprehensive Metabolic Prof ilon 02-21-2025 ALK PHOS 58 U/L Normal 35-104 [facility]; [facility]. Work Phone: Comment on above: Performed By: #### L 100.0100, L500.4050, BTS #### [facility] [address] [place], [address] BUN/CRE 14.6 RATIO Normal 10-20 [facility] Comment on above: Performed By: #### L 100.0100, L500.4050, BTS #### [facility] [address] [place], [address] GAP 11 Normal 5-15 [facility]; [facility] Work Phone: Comment on above: Performed By: #### L 100.0100, L500.4050, BTS #### [facility] [address] [place], [place], [address] Potassium [Moles/Vol] 3.9 mmol/L Normal 3.3-5.1 [facility]; [facility] Work Phone: Comment on above: Performed By: #### L 100.0100, L500.4050, BTS #### [facility] [address] [place], [place], [id number] T PROT 7.3 g/dL Normal 5.9-8.4 [facility]; [facility] Work Phone: Comment on above: Performed By: #### L 100.0100, L500.4050, BTS #### [facility] [address] [place], [place], [address] AST [Catalytic activity/Vol] 23 U/L Normal <=31 [facility]; [facility] Work Phone: Comment on above: Performed By: #### L 100.0100, L500.4050, BTS #### [facility] [address] [place], [place], [id number] [phone] Eosinophil percentageon 02-12 0-2024 Eosinophils/100 WBC (Bld) 2.2 % Normal 0-5 [facility]; [facility] Work Phone: Comment on above: Performed By: #### L 100.0100, L500.4050, BTS #### [facility] [address] [place], [place], [address] Erythrocyte distribution wid th ratioon 02-21-2024 Erythrocyte distribution width (RBC) [Ratio] 13.2 % Normal 11.6-14.6 [facility]; [facility] Work Phone: Comment on above: Performed By: #### L 100.0100, L500.4050, BTS #### [facility] [address] [place], [place], [address] Erythrocyte distribution wid th standard deviationOrdered By: Alissa Hartley on 02-21-2025 Erythrocyte distribution width (RBC) [Ratio] 42.5 fl 35.1-43.9 [facility] Glomerular filtration rate ( GFR) estimation/1.73 sq m using serum, plasma, or whole bon 02-21-2025 GFR/1.73 sq M.predicted among non-blacks MDRD (S/P/Bld) [Vol rate/Area] 76 mL/min/{1.73_m2} Normal >60 [facility]; [facility] Work Phone: Comment on above: mL/min/1.73m2 CKD-EP I Creatinine Equation (2020) Result Comment: mL/m in/1.73m2 CKD-EPI Creatinine Equation (2020) Performed By: #### L 100.0100, L500.4050, BTS #### [facility] [address] [place], [address] Hemoglobin measurementon Hemoglobin (Bld) [Mass/Vol] 14.1 g/dL Normal 12.0-15.0 [facility]; [facility] Work Phone: Comment on above: Performed By: #### L 100.0100, L500.4050, BTS #### [facility] [address] [place], [place], [address] Immature granulocytes/100 WB C Auto (Bld)Ordered By: Alissa Hartley on 02-21-2025 Immature granulocytes/100 WBC (Bld) 0.400 % 0.0-0.9 [facility] Comment on above: IG% - Immature Granu locytes (promyelocytes, myelocytes and metamyelocytes) > 1% indicates that a LEFT SHIFT is Present. MCV (mean corpuscular volume ) determinationon 02-21-2025 MCV (RBC) [Entitic vol] 88.0 fL Normal 81-99 [facility]; [facility] Work Phone: Comment on above: Performed By: #### L 100.0100, L500.4050, BTS #### [facility] [address] [place], [place], [address] Mean corpuscular hemoglobin (MCH) determinationon 02-21-2025 MCH (RBC) [Entitic mass] 29.6 pg Normal 27.0-32.0 [facility]; [facility] Work Phone: Comment on above: Performed By: #### L 100.0100, L500.4050, BTS #### [facility] [place], [place], [address] Mean corpuscular hemoglobin concentration (MCHC) determinationon 02-21-2025 MCHC (RBC) [Mass/Vol] 33.7 g/dL Normal 32-36 [facility]; [facility] Work Phone: Comment on above: Performed By: #### L 100.0100, L500.4050, BTS #### [facility] [address] [place], [place], [address] Mean platelet volume determi nationon 02-21-2025 Platelet mean volume (Bld) [Entitic vol] 10.3 fL Normal 6.2-12.0 [facility]; [facility] Work Phone: Comment on above: Performed By: #### L 100.0100, L500.4050, BTS #### [facility] [address] [place], [place], [id number] Monocyte percentageon 2024 Monocytes/100 WBC (Bld) 8.8 % Normal 0-10 [facility].; [facility]. Work Phone: Comment on above: Performed By: #### L 100.0100, L500.4050, BTS #### [facility] [address] [facility] [place], [address] Neutrophil percentageon 02-12 0-2024 Neutrophils/100 WBC (Bld) 53.9 % Normal 47-70 [facility].; [facility]. Work Phone: Comment on above: Performed By: #### L 100.0100, L500.4050, BTS #### [facility] [address] [place], [place], [address] No Panel Informationon 02-21 Ab SCREEN GEL Negative Normal [facility].; [facility]. Work Phone: Absolute Lymph 1.87 {X10_3/uL} Normal 0.83 - 4.5 1 {X10_3/uL} [facility].; [facility]. Work Phone: Absolute Neut 3.0 {X10_3/uL} Normal 2.0 - 7.7 {X10_3/uL} [facility].; [facility], [facility]. Work Phone: BUN/CRE 14.6 {RATIO} Normal 10 - 20 {RATIO} [facility]. Work Phone: Nucleated red blood cell per centageOrdered By: Alissa Hartley on 02-21-2025 Nucleated RBC/100 WBC (Bld) [Ratio] 0 % 0-5 [facility] Platelet counton 02-21-2025 Platelets (Bld) [#/Vol] 250 10*3/uL Normal 150-450 [facility]; [facility] Work Phone: Comment on above: Performed By: #### L 100.0100, L500.4050, BTS #### [facility] [address] [place], [address] Potassium measurement (mass/ volume)Ordered By: Alissa Hartley on 02-21-2025 Potassium (Unsp spec) [Mass/Vol] 3.9 mmol/L 3.3-5.1 [facility] Serum creatinine measurement (mass/volume)on 02-21-2025 Creatinine [Mass/Vol] 0.91 mg/dL Normal 0.70-1.20 [facility]; [facility] Work Phone: Comment on above: Performed By: #### L 100.0100, L500.4050, BTS #### [facility] [address] [place], [address] Serum globulin measurementon 02-21-2025 Globulin (S) [Mass/Vol] 2.7 g/dL Normal 2.2-4.2 [facility]; [facility] Work Phone: Comment on above: Performed By: #### L 100.0100, L500.4050, BTS #### [facility] [address] [place], [place], [address] Serum glucose measurement (m ass/volume)on 02-21-2025 Glucose [Mass/Vol] 82 mg/dL Normal 70-99 [facility]; [facility] Work Phone: Comment on above: Performed By: #### L 100.0100, L500.4050, BTS #### [facility] [address] [place], [place], [id number] Serum or plasma alanine castillo otransferase (ALT) measurementon 02-21-2025 ALT [Catalytic activity/Vol] 21 U/L Normal <=34 [facility]; [facility] Work Phone: Comment on above: Performed By: #### L 100.0100, L500.4050, BTS #### [facility] [address] [place], [place], [address] Serum or plasma albumin hima urement (mass/volume)on 02-21-2025 Albumin [Mass/Vol] 4.6 g/dL Normal 3.5-5.0 [facility]; [facility] Work Phone: Comment on above: Performed By: #### L 100.0100, L500.4050, BTS #### [facility] [address] [place], [place], [address] Serum or plasma albumin/glob ulin mass ratioon 02-21-2025 Albumin/Globulin [Mass ratio] 1.7 {ratio} Normal 0.9-2.4 [facility]; [facility] Work Phone: Comment on above: Performed By: #### L 100.0100, L500.4050, BTS #### [facility] [address] [place], [place], [id number] Serum or plasma alkaline lopez sphatase measurementOrdered By: Alissa Hartley on 02-21-2025 ALP [Catalytic activity/Vol] 58 U/L 35-104 [facility] Serum or plasma calcium hima urement (mass/volume)on 02-21-2025 Calcium [Mass/Vol] 9.7 mg/dL Normal 7.6-11.0 [facility]; [facility] Work Phone: Comment on above: Performed By: #### L 100.0100, L500.4050, BTS #### [facility] [address] [place], [place], [address] Serum or plasma urea nitroge n measurement (mass/volume)on 02-21-2025 Urea nitrogen [Mass/Vol] 13 mg/dL Normal 4-19 [facility]; [facility] Work Phone: Comment on above: Performed By: #### L 100.0100, L500.4050, BTS #### [facility] [address] [place], [place], [id number] Sodium levelon 02-21-2025 Sodium [Moles/Vol] 140 mmol/L Normal 133-145 [facility]; [facility] Work Phone: Comment on above: Performed By: #### L 100.0100, L500.4050, BTS #### [facility] [address] [place], [place], [id number] Total proteinOrdered By: James Hartley on 02-21-2025 Protein [Mass/Vol] 7.3 g/dL 5.9-8.4 [facility] Type AND Screenon 02-21-2025 ABO and Rh group Nom (Bld) Blood group O Rh(D) positive Normal [facility]; [facility] Work Phone: Comment on above: Order Comment: [id number] Performed By: #### L 100.0100, L500.4050, BTS #### [facility] [address] [place], [place], [address] White blood cell (WBC) count on 02-21-2025 WBC (Bld) [#/Vol] 5.5 10*3/uL Normal 4.4-11.0 [facility] [employer] [employer]; [facility] [employer] Work Phone: Comment on above: Performed By: #### L 100.0100, L500.4050, BTS #### [facility] [address] [place], [place], [address] Tubing Supervisor Office Visit Reporton 02-16-2025 Tubing Supervisor Office Visit Report [facility] [address], [address] [place] [address] OFFICE VISIT Date of Service: 02/16/25 MR#: [id number] Acct: [id number] Name: CHRIS ARITA Rep #: [id number] : 1975 Provider: Dr. Alissa benjamin MD Age/Sex: 49/F Location: [facility] [place] Status: Signed Intake Vital Signs 01/17/25 13:05 02/16/25 11:58 Height 5 ft 8 in 5 ft 8 in Weight: 219 lb 2 oz 219 lb 8 oz BMI 33.3 33.3 BP 166/100 H 170/96 H Intake Visit Reasons: surgical consult Infection Control Preventionist Required: No Is patient in pain?: No Allergies No Known Allergies Allergy (Verified 02/16/25 12:04) Post menopausal: No Patient : No : No PFSH Medical History Breast abscess Endometriosis Surgical History S/P D C (status post dilation and curettage) Family History Mother Breast cancer Social History adopted: No household members: spouse and children housing: house number of children: 4 current occupational status: unemployed pets and animals: Yes pets and animals: dog(s) history of recent travel: No sexually active: Yes Smoking Status: Never smoker second hand exposure: No alcohol intake: current alcohol intake frequency: a few times a week Alcohol type: wine substance use type: does not use well-balanced diet: daily or most days caffeine: Yes Type: coffee Number of servings: 2 what type of physical activity do you participate in: walking frequency: 3-4 times per week do you feel safe at home: Yes HPI surgical consult Details: CHRIS ARITA is a 49 year old who presents for persistent irregular bleeding. she had hyperplasia diagnosed last year and was treated with megace, but still has had irregular bleeding despite the therapy and the lining is thickened. repeat EMB was normal. she denies any pelvic pain or pressure or prolapse. Female Reproductive History Menopausal Symptoms: No night sweats History 4 Elective abortions Hx Para 4 Spontaneous abortions Hx # Term Pregnancies Ectopic pregnancies Hx # Pregnancies Multiple births # of living children Past Pregnancies Del. Date Name GA/Weeks Outcome Route Bth Weight Infant Gen Labor Lgth Anesthesia Del Locatn Provider FOB Unknown [place]ela Unknown [place] Unknown Judith Unknown [place]te ROS Const Constitutional: Denies fatigue, night sweats, weight gain or weight loss ENT ENT: Reports system reviewed and no additional complaints, except as documented Details: co headaches Cardio Card: Denies chest pain Resp Resp: Reports dyspnea; Denies cough GI GI: Reports as per HPI; Denies abdominal pain, constipation, nausea or vomiting : Denies nipple discharge, urinary frequency, urinary incontinence, urinary hesitancy, urinary urgency, vaginal discharge, vaginal dryness, vaginal odor or vaginal pruritus Musc Musc: Denies arthralgias, back pain or muscle weakness Skin Skin/Breast: Denies alopecia, change in hair, dry skin, breast mass, breast pain, breast skin changes or nipple discharge Neuro Neuro: Reports system reviewed and no additional complaints, except as documented Psych Psych: Reports system reviewed and no additional complaints, except as documented Endo Endo: Denies cold intolerance, excessive sweating, heat intolerance or polydipsia Joseph/Lymph Hematologic/Lymphatic: Denies easy bleeding, Denies easy bruising and Denies lymphadenopathy Exam Const General: cooperative, healthy appearing, comfortable and no acute distress Orientation: alert [facility] Head: normal to inspection and normocephalic Ears: hearing grossly normal bilaterally and external ears normal Nose: external nose normal and nares normal Face and sinus: normal facial exam Neck Neck: normal visual inspection and no lymphadenopathy Thyroid: thyroid normal Chest Chest palpation inspection: normal inspection of the chest Resp Effort Inspection: normal respiratory effort Auscultation: clear to auscultation bilaterally Cardio Rate: regular rate Rhythm: regular rhythm Heart Sounds: S1 normal and S2 normal GI Inspection: normal to inspection and non-distended Palpation: soft and no hepatosplenomegaly Musc Other: gross motor intact no deficits, full bilateral strength Skin General: no rashes or lesions noted Neuro General: patient alert, patient awake, moves all extremities and no focal motor deficits Motor: muscle tone normal throughout Extrem General: normal to inspection and no pedal edema Psych Appearance: grossly normal Mental Status: mental status grossly normal Affect: nor (more content not included)... Normal [facility] Surgical pathology reportOrd ered By: Martha Shah on 01-19-2025 Surgical pathology study [facility] - Chemistry and C hemistry - challengeOrdered By: Larisa Davis on 01-17-2025 HCG ( test) Ql (U) Negative [facility] Tubing Supervisor Office Visit Reporton 01-17-2025 Tubing Supervisor Office Visit Report [facility] [address], [address] [place] [address] OFFICE VISIT Date of Service: 01/17/25 MR#: [id number] Acct: [id number] Name: CHRIS ARITA Rep #: [id number] : 1975 Provider: MENDY vargas Age/Sex: 49/F Location: [facility] [place] Status: Signed Intake Vital Signs 09/12/24 09:19 01/17/25 13:05 Height 5 ft 8 in 5 ft 8 in Weight: 219 lb 2 oz BMI 33.3 BP 166/100 H Intake Visit Reasons: repeat EMB per Infection Control Preventionist Required: No Is patient in pain?: No Allergies No Known Allergies Allergy (Unverified 01/17/25 13:15) Medications ???Medication ???Instructions ???Recorded ???Confirmed ???Type megestrol 40 mg tablet 40 mg PO BID #90 tabs 01/09/2503/08 Rx Is last menstrual period known: Yes Last Menstrual Period: 01/06/25 Post menopausal: No Patient : No : No PFSH PFSH Medical History Breast abscess Endometriosis Surgical History S/P D C (status post dilation and curettage) Family History Mother Breast cancer Social History adopted: No household members: spouse and children housing: house number of children: 4 current occupational status: unemployed pets and animals: Yes pets and animals: dog(s) history of recent travel: No sexually active: Yes Smoking Status: Never smoker second hand exposure: No alcohol intake: current alcohol intake frequency: a few times a week Alcohol type: wine substance use type: does not use well-balanced diet: daily or most days caffeine: Yes Type: coffee Number of servings: 2 what type of physical activity do you participate in: walking frequency: 3-4 times per week do you feel safe at home: Yes History 4 Elective abortions Hx Para 4 Spontaneous abortions Hx # Term Pregnancies Ectopic pregnancies Hx # Pregnancies Multiple births # of living children Past Pregnancies Del. Date Name GA/Weeks Outcome Route Bth Weight Gen Labor Lgth Anesthesia Del [facility] Provider FOB Unknown Tangela Unknown [place] Unknown Judith Unknown Violette HPI repeat EMB per Details: CHRIS ARITA is a 49 year old who presents for repeat endometrial biopsy. She had EMB February 2024 indicating hyperplasia without atypia. Was to take megestrol for 6 months and then repeat biopsy. She did not come in for that. She is again on megestrol. States has bleeding whenever she stops. She takes typically once a day, sometimes twice. Female Reproductive History Last Menstrual Period: 01/06/25 ROS Const Constitutional: Reports system reviewed and no additional complaints, except as documented Eyes Eyes: Reports system reviewed and no additional complaints, except as documented GI GI: Denies abdominal pain or change in bowel habits : Reports as per HPI Exam Const General: cooperative and no acute distress Nutritional Appearance: well nourished Orientation: oriented x3 External Female Exam: normal external appearance Speculum Exam - Vagina: normal appearance of the vagina and normal vaginal discharge Speculum Exam - Cervix: normal appearance of the cervix Bimanual Exam- Vagina Uterus: non-tender and enlarged Bimanual Exam- Adnexa, other: normal adnexae, no masses and non-tender Office Procedures Endometrial Biopsy Endometrial Biopsy Test: Yes Not Applicable Consent Signed: Yes Time out checklist: patient, procedure, site marked/identified, positioning of patient, supplies available, allergies confirmed and team agrees on procedure Time out time: 13:15 tenaculum used: Yes dilator used: No Details: Cervix prepped with betadine and pipelle inserted 10 cm into uterus without complication. Specimen obtained and sent to lab for analysis. All instruments removed from vagina without complications. Excellent hemostasis noted. Results POC Urine Office , Urine Negative Last Edit by Kathryn Saba on 01/17/25 13:20 Coding Level of Care Code Attention Ben Diagnoses Endometrial hyperplasia without atypia N85.00 CPT Codes Endometrial Biopsy (97451) Assessment and Plan Assessment and Plan (1) Endometrial hyperplasia without atypia: Status: Acute Comment: megestrol daily X 6 mo then repeat EMB Orders: Orders POC Urine Today N93.9 - Abnormal uterine and vaginal bleeding, unspecified Endometrial Biopsy Today N93.9 - Abnormal uterine and vaginal bleeding, unspecified Plan Reviewed S S infection we discussed that she will at least need hysteroscopy D C. She is co (more content not included)... Normal [facility] Surgery Specimen Level Regan 01-17-2025 Surgery Specimen Level IV ---- Patient Age/Sex Location Account Attending Physician ---- CHRIS ARITA 49/F LABSPEC [id number] MENDY [place] ---- Specimen: [id number] Received: 01/17/25 Status: LAURA Stockmary Num: [id number] Spec Type: KADY BX/C Subm Dr: MENDY [place] HEADER OPERATION: Endometrial biopsy PRE-OP DIAGNOSIS: Abnormal uterine bleeding TISSUE SUBMITTED: A- Endometrial lining ---- MICROSCOPIC DIAGNOSIS A. Uterus, endometrial lining, biopsy: * Inactive endometrium with decidualized stromal alteration and breakdown compatible with hormonal therapy effect MICROSCOPIC DESCRIPTION Slides are reviewed. GROSS DESCRIPTION A. Received in formalin in a container labeled with the patient's name, date of , and with no further designation are multiple red-delarosa fragments of soft tissue admixed with blood and mucus measuring 2.8 x 1.2 x 0.4 cm in aggregate. Submitted in toto in A1. [facility] 01-18-2025 CPT:94616 ---- Patient Age/Sex Location Account Attending Physician ---- CHRIS ARITA 49/F LABSPEC [id number] MENDY [place] ---- Signed (signature on file) Dr. Martha Shah, 01/19/25 1036 ---- Normal [facility] Comment on above: Performed By: #### L 100.0100, L500.4050, BTS #### [facility] [address] [place], [address] CBC + DIFFon 03-07-2024 Baso # 0.01 x10EE3/UL Normal 0.00 - 0.10 [facility] Comment on above: Performed By: #### 2 47391 #### [facility],[address] [place] [address] 94211 Basophils/100 WBC (Bld) 0.3 % Normal 0.0 - 2.0 [facility] Comment on above: Performed By: #### 2 97412 #### [facility],[address] [place] [address] CBC + DIFF Normal [facility] Comment on above: Result Comment: CBC- COMPLETE BLOOD COUNT Performed By: #### 2 15317 #### [facility],[address] [place] [address] EO # 0.08 x10EE3/UL Normal 0.00 - 0.50 [facility] Comment on above: Performed By: #### 2 90463 #### [facility],[address] [place], [place] [address] Eosinophils/100 WBC (Bld) 1.5 % Normal 0.0 - 7.0 [facility] Comment on above: Performed By: #### 2 11014 #### [facility],[address] [place] [address] Erythrocyte distribution width (RBC) [Ratio] 16.5 % High 12.0 - 15.6 [facility] Comment on above: Performed By: #### 2 34928 #### [facility],[address] [place] [address] Hematocrit (Bld) [Volume fraction] 36.2 % Normal 34.0 - 46.0 [facility] Comment on above: Performed By: #### 2 09126 #### [facility],[address] [place] [address] 37966 Hemoglobin (Bld) [Mass/Vol] 11.9 g/dL Low 12.0 - 16.0 [facility] Comment on above: Performed By: #### 2 35244 #### [facility],[address] [place] [address] 68890 Lymph # 1.50 x10EE3/UL Normal 0.80 - 2.80 [facility] Comment on above: Performed By: #### 2 59012 #### [facility],[address] [place] [address] 09385 Lymphocytes/100 WBC (Bld) 27.2 % Normal 20.0 - 45.0 [facility] Comment on above: Performed By: #### 2 57546 #### [facility],[address] [place] [address] 89067 MANUAL DIFF N/A Normal [facility] Comment on above: Performed By: #### 2 43612 #### [facility],[address] [place], [place] [address] MCH (RBC) [Entitic mass] 27 pg Normal 27 - 33 [facility] Comment on above: Performed By: #### 2 93212 #### [facility],[address] [place] [address] MCHC 33 X10 3 Normal 32 - 36 [facility] Comment on above: Performed By: #### 2 08175 #### [facility],[address] [place] [address] 31339 MCV (RBC) [Entitic vol] 83 fL Normal 80 - 99 [facility] Comment on above: Performed By: #### 2 10225 #### [facility],[address] [place], [place] [address] [place] # 0.44 x10EE3/UL Normal 0.20 - 1.00 [facility] Comment on above: Performed By: #### 2 28329 #### [facility],[address] [place] [address] 21789 MONOS % 7.9 % Normal 0.0 - 10.0 [facility] Comment on above: Performed By: #### 2 70567 #### [facility],[address] [place] [address] 97077 Morphology Federico (Bld) [Interp] N/A Normal [facility] Comment on above: Performed By: #### 2 59432 #### [facility],[address] [place] [address] 08297 Neut # 3.50 x10EE3/UL Normal 1.50 - 7.10 [facility] Comment on above: Performed By: #### 2 38043 #### [facility],[address] [place] [address] 65517 Neutrophils/100 WBC (Bld) 63.2 % Normal 46.0 - 76.0 [facility] Comment on above: Performed By: #### 2 88074 #### [facility],[address] [place] [address] 08518 PLATELET 261 x10EE3/UL Normal 150 - 450 [facility] Comment on above: Performed By: #### 2 86416 #### [facility],[address] [place] [address] 33382 Platelet mean volume (Bld) [Entitic vol] 8.1 fL Normal 6.6 - 10.5 [facility] Comment on above: Result Comment: AUTO MATED DIFFERENTIAL Performed By: #### 2 69048 #### [facility],[address] [place] [address] 93752 RBC 4.36 x 10EE6/UL Normal 4.10 - 5.30 [facility] Comment on above: Performed By: #### 2 85064 #### [facility],[address] [place] [address] 46844 WBC 5.5 x 10EE3/UL Normal 4.5 - 10.8 [facility] Comment on above: Performed By: #### 2 95148 #### [facility],[address] [place] [address] 20318 CMP with eGFRon 03-07-2024 AGE 48 years Normal [facility] Comment on above: Performed By: #### 2 00766 #### [facility],[address] [place] [address] 76206 Albumin [Mass/Vol] 3.7 g/dL Normal 3.4 - 5.0 [facility] Comment on above: Performed By: #### 2 53782 #### [facility],[address] [place] [address] 03907 Albumin/Globulin [Mass ratio] 1.0 {ratio} Normal 0.9 - 1.6 [facility] Comment on above: Performed By: #### 2 58894 #### [facility],[address] [place] [address] 64988 ALK PHOS 56 U/L Normal 46 - 116 [facility] Comment on above: Performed By: #### 2 91049 #### [facility],[address] [place] [address] 11067 ALT [Catalytic activity/Vol] 61 U/L Normal 16 - 63 [facility] Comment on above: Performed By: #### 2 19080 #### [facility],[address] [place] [address] 52901 Anion gap [Moles/Vol] 12 mmol/L Normal 10 - 20 [facility] Comment on above: Performed By: #### 2 73328 #### [facility],[address] [place] [address] 79824 AST [Catalytic activity/Vol] 36 U/L Normal 13 - 39 [facility] Comment on above: Performed By: #### 2 89089 #### [facility],[address] [place] [address] 26511 B/C RATIO 8 ratio Normal 0 - 30 [facility] Comment on above: Performed By: #### 2 67461 #### [facility],[address] [place] [address] 14345 Bilirubin [Mass/Vol] 0.3 mg/dL Normal 0.2 - 1.0 [facility] Comment on above: Performed By: #### 2 63508 #### [facility],[address] [place] [address] 91637 Calcium [Mass/Vol] 8.6 mg/dL Normal 8.5 - 10.1 [facility] Comment on above: Performed By: #### 2 15041 #### [facility],[address] [place], [place] [address] Chloride [Moles/Vol] 101 mmol/L Normal 98 - 107 [facility] Comment on above: Performed By: #### 2 52247 #### [facility],[address] [place], [place] [address] CMP with eGFR Normal [facility] Comment on above: Result Comment: COMP REHENSIVE METABOLIC PANEL Performed By: #### 2 44792 #### [facility],[address] [place] [address] CO2 [Moles/Vol] 28.3 mmol/L Normal 21.0 - 32.0 [facility] Comment on above: Performed By: #### 2 38613 #### [facility],[address] [place] [address] Creatinine [Mass/Vol] 0.87 mg/dL Normal 0.55 - 1.02 [facility] Comment on above: Performed By: #### 2 75423 #### [facility],[address] [place] [address] GFR/1.73 sq M.predicted among non-blacks MDRD (S/P/Bld) [Vol rate/Area] mL/min/{1.73_m2} Normal 60 - 999 [facility] Comment on above: Performed By: #### 2 25373 #### [facility],[address] [place] [address] Result Comment: ACCO RDING TO THE NATIONAL KIDNEY DISEASE EDUCATION PROGRAM(NKDE), A NORMAL eGFR IS A VALUE GREATER THAN OR EQUAL TO 60 ML/MIN/1.73 SQ METERS. CHRONIC KIDNEY DISEASE: <60mL/MIN/1.73 SQ METERS KIDNEY FAILURE: <15mL/MIN/1.73 SQ METERS THIS TEST SHOULD ONLY BE USED FOR PATIENTS 18 YEARS OF AGE AND OLDER. Globulin (S) [Mass/Vol] 3.6 g/dL Normal 1.5 - 3.8 [facility] Comment on above: Performed By: #### 2 27328 #### [facility],[address] [place], [place] [address] Glucose [Mass/Vol] 95 mg/dL Normal 74 - 106 [facility] Comment on above: Performed By: #### 2 88098 #### [facility],[address] [place] [address] Potassium [Moles/Vol] 3.8 mmol/L Normal 3.5 - 5.1 [facility] Comment on above: Performed By: #### 2 66072 #### [place] [address] Protein [Mass/Vol] 7.3 g/dL Normal 6.4 - 8.2 [facility] Comment on above: Performed By: #### 2 89434 #### [place] [address] Sodium [Moles/Vol] 137 mmol/L Normal 136 - 145 [facility] Comment on above: Performed By: #### 2 65459 #### [place] [address] Urea nitrogen [Mass/Vol] 7 mg/dL Normal 7 - 18 [facility] Comment on above: Performed By: #### 2 50938 #### [place] [id number] URINEon 03-07-2024 Beta HCG ( test) Ql (U) Negative Normal NEGATIVE [facility] Comment on above: Performed By: #### 2 26741 #### [place] [address] EXTERNAL QC DONE? YES Normal [facility] Comment on above: Performed By: #### 2 51194 #### [place] [address] INTERNAL QC PASS Normal [facility] Comment on above: Performed By: #### 2 16904 #### [facility],[address] [place] [address] 01311 URINALYSISon 03-07-2024 Amorphous NONE Normal [facility] Comment on above: Performed By: #### 2 85836 #### [facility],[address] [place] [address] 48390 Bacteria NONE Normal [facility] Comment on above: Performed By: #### 2 59397 #### [facility],[address] [place] [address] 84013 Bilirubin Ql (U) Negative Normal NORMAL: NEGATIVE [facility] Comment on above: Performed By: #### 2 24854 #### [facility],[address] [place], [place] [address] Casts NONE Normal [facility] Comment on above: Performed By: #### 2 41439 #### [facility],[address] [place], [place] [address] Clarity (U) clear Normal NORMAL: CLEAR [facility] Comment on above: Performed By: #### 2 60886 #### [facility],[address] [place] [address] 84205 Color (U) p.yel Normal NORMAL: YELLOW [facility] Comment on above: Performed By: #### 2 79765 #### [facility],[address] [place] [address] 79191 Crystals LM Nom (Urine sed) NONE Normal [facility] Comment on above: Performed By: #### 2 94719 #### [facility],[address] [place] [address] 27002 Epi Cells OCC Normal [facility] Comment on above: Performed By: #### 2 13137 #### [facility],[address] [place] [address] 79833 Glucose Ql (U) NORM Normal NORMAL: NORMAL [facility] Comment on above: Performed By: #### 2 62833 #### [facility],[address] [place] [address] 76313 Hemoglobin Ql (U) 250 Abnormal NORMAL: NEGATIVE [facility] Comment on above: Performed By: #### 2 16572 #### [facility],[address] [place] [address] 58732 Ketone Negative Normal NORMAL: NEGATIVE [facility] Comment on above: Performed By: #### 2 88036 #### [facility],[address] [place] [address] 33669 Leukocytes Negative Normal NORMAL: NEGATIVE [facility] Comment on above: Performed By: #### 2 89620 #### [facility],[address] [place] [address] 02285 Mucous NONE Normal [facility] Comment on above: Performed By: #### 2 89516 #### [facility],[address] [place] [address] 35955 Nitrite Ql (U) Negative Normal NORMAL: NEGATIVE [facility] Comment on above: Performed By: #### 2 39735 #### [facility],[address] [place] [address] 54189 pH (U) 7 [pH] Normal NORMAL: 5.0-8.0 [facility] Comment on above: Performed By: #### 2 73119 #### [facility],[address] [place] [address] 46655 Protein Ql (U) 15 Abnormal NORMAL: NEGATIVE [facility] Comment on above: Performed By: #### 2 03633 #### [facility],[address] [place] [address] 20126 Rbc 20-25 Normal 0-3/hpf [facility] Comment on above: Performed By: #### 2 56740 #### [facility],[address] [place] [address] 29972 Sp [place] 1.010 Normal NORMAL: 1.010-1.030 [facility] Comment on above: Performed By: #### 2 87820 #### [facility],[address] [place] [address] 95452 Specimen Type UNSPECIFIED Normal [facility] Comment on above: Performed By: #### 2 95218 #### [facility],[address] [place] [address] 65169 Urinalysis dipstick W Reflex Microscopic panel (U) SEE BELOW Normal [facility] Comment on above: Result Comment: MICR OSCOPIC Performed By: #### 2 15157 #### [facility],[address] [place] [address] 42522 Urobilinog NORM Normal NORMAL: NORMAL [facility] Comment on above: Performed By: #### 2 45084 #### [facility],[address] [place] [address] 19265 Wbc NONE Normal 0-5/hpf [facility] Comment on above: Performed By: #### 2 40798 #### [facility],[address] [place] [address] 78669 Yeast NONE Normal [facility] Comment on above: Performed By: #### 2 49075 #### [facility],[address] [place] [address] 81027 [facility] 03-07-2024 [place] [address] Patient: CHRIS ARITA Phone#: : 1975 Age: 48 Gender: F Pt. Type: ER Account: [id number] Location: [facility] Ordering: CORKY MUHAMMAD Exam Date: 03/07/2024/14:49 Family Phys: JOSE FRANCISCO SABA Charge Code: 043503 Physician: [place] Order #: [id number] Dose#: PROCEDURE: PELVIC ULTRASOUND, TRANSABDOMINAL COMPARISON: None. INDICATIONS: Heavy Bleeding TECHNIQUE: Pelvic ultrasound was performed in the usual manner. FINDINGS: UTERUS: Size is 11.2 x 6.7 x 7.4 cm and bulbous in contour. Endometrial thickness is 20 mm. ADNEXAE: Normal bilateral appearance with no significant masses. Each ovary is normal in size for a patient of this age. A 19 millimeter right adnexal cyst is present. CUL-DE-SAC: Normal. No fluid or mass. OTHER: Negative. CONCLUSION: 1. The uterus is bulbous in contour without other focal abnormality. The endometrium is thickened at 20 millimeters. 2. There is a 19 millimeter right adnexal cyst. Dictated by: Moira Bertrand MD on 03/07/2024 at 15:58 Approved by: Moira Bertrand MD on 03/07/2024 at 16:00 Normal [facility] Cytology Reporton 2018 [facility] Report . Pathology Reports Accession: Collected Date/Time: Received Date/Time: Pathologist: [id number] 11/22/2018 11:52 EDT 11/22/2018 18:00 EDT [facility] Cyt[facility] Report SPECIMEN: Specimen Description: Liquid Prep Reflex ASCUS Specimen: Cervical/Endocervical Screening or Diagnostic: Screening RELEVANT HISTORY: LMP: 11-13-18 SPECIMEN ADEQUACY: SATISFACTORY FOR EVALUATION ENDOCERVICAL/TRANSFORM ATIONAL ZONE COMPONENT ABSENT/INSUFFICIENT INTERPRETATION/RESULTS : NEGATIVE FOR INTRAEPITHELIAL LESION OR MALIGNANCY Electronically Signed by Pathology report verified by [facility] Screened by: [place] Electronically signed by Jerilyn WEINER (ASC) Sign-Out Date: 11/30/2018 08:10 Performing Lab: [facility], [address] [place] [address] Disclaimer The Pap test is a screening test for cervical cancer. As evidenced by published data, it is subject to both inherent false negative and false positive results. Your patient's results should be interpreted in context with pertinent clinical history including gynecological examination. Normal [facility] ([place]) Comment on above: Performed By: #### G YCR #### [place] [address] .Auto Diffon 11-23-2018 Ammonia mass conc (P) 0.30 10 3/mcL Normal 0.09-1.40 [facility] ([place]) Comment on above: Performed By: #### F E, TSH, CMP, GFR, LIPID, CBC, ADIFF, ANEU #### [address] [address] Basophils #/vol (Bld) 0.00 10 3/mcL Normal 0.00-0.27 [facility] ([place]) Comment on above: Performed By: #### F E, TSH, CMP, GFR, LIPID, CBC, ADIFF, ANEU #### [address] [address] Basophils/100 WBC (Bld) 0.7 % Normal 0.0 - 2.5 % [facility] ([place]) Comment on above: Performed By: #### F E, TSH, CMP, GFR, LIPID, CBC, ADIFF, ANEU #### [address] [address] Eosinophils #/vol (Bld) 0.20 10 3/mcL Normal 0.00-0.65 [facility] ([place]) Comment on above: Performed By: #### F E, TSH, CMP, GFR, LIPID, CBC, ADIFF, ANEU #### [address] [address] Eosinophils/100 WBC (Bld) 3.2 % Normal 0.0 - 6.0 % [facility] ([place]) Comment on above: Performed By: #### F E, TSH, CMP, GFR, LIPID, CBC, ADIFF, ANEU #### [address] [address] Lymphocytes #/vol (Bld) 1.40 10 3/mcL Normal 0.90-4.32 [facility] ([place]) Comment on above: Performed By: #### F E, TSH, CMP, GFR, LIPID, CBC, ADIFF, ANEU #### [address] [address] Lymphocytes/100 WBC (Bld) 29.2 % Normal 20.0 - 40.0 % [facility] ([place]) Comment on above: Performed By: #### F E, TSH, CMP, GFR, LIPID, CBC, ADIFF, ANEU #### [address] [address] Monocytes/100 WBC (Bld) 7.0 % Normal 2.0 - 13.0 % [facility] ([place]) Comment on above: Performed By: #### F E, TSH, CMP, GFR, LIPID, CBC, ADIFF, ANEU #### [place] [address] Neutrophils/100 WBC (Bld) 59.9 % Normal 50.0 - 75.0 % [facility] ([place]) Comment on above: Performed By: #### F E, TSH, CMP, GFR, LIPID, CBC, ADIFF, ANEU #### [place] [address] .NEUABSon 11-23-2018 Neutrophils #/vol (Bld) 2.90 10 3/mcL Normal 2.25-8.10 [facility] ([place]) Comment on above: Performed By: #### F E, TSH, CMP, GFR, LIPID, CBC, ADIFF, ANEU #### [place] [address] CBCon 11-23-2018 Erythrocyte distribution width Ratio (RBC) 13.6 % Normal 11.5 - 15.5 % [facility], [facility], [facility]. Comment on above: Performed By: #### F E, TSH, CMP, GFR, LIPID, CBC, ADIFF, ANEU #### [place] [address] Hematocrit Volume Fraction (Bld) 39.8 % Normal 34.0 - 46.0 % [facility], [facility].; [facility] Comment on above: Performed By: #### F E, TSH, CMP, GFR, LIPID, CBC, ADIFF, ANEU #### [place] [address] Hemoglobin mass conc (Bld) 13.7 G/dL Normal 12.0 - 16.0 g/dL [facility], [facility] Comment on above: Performed By: #### F E, TSH, CMP, GFR, LIPID, CBC, ADIFF, ANEU #### [place] [address] MCH Entitic mass (RBC) 30.6 pg Normal 27.0 - 33.0 pg [facility].; [facility]. Comment on above: Performed By: #### F E, TSH, CMP, GFR, LIPID, CBC, ADIFF, ANEU #### [place] [address] MCHC mass conc (RBC) 34.3 G/dL Normal 32.0 - 36.0 g/dL [facility].; [facility], [facility]. Comment on above: Performed By: #### F E, TSH, CMP, GFR, LIPID, CBC, ADIFF, ANEU #### [place] [address] MCV Entitic volume (RBC) 89.0 fL Normal 80.0 - 99.0 fL [facility].; [facility] Comment on above: Performed By: #### F E, TSH, CMP, GFR, LIPID, CBC, ADIFF, ANEU #### [place] [address] Platelet mean volume Entitic volume (Bld) 8.7 fL Normal 6.6 - 10.5 fL [facility]; [facility]. Comment on above: Performed By: #### F E, TSH, CMP, GFR, LIPID, CBC, ADIFF, ANEU #### [place] [address] Platelets #/vol (Bld) 255 10 3/mcL Normal 150-450 A [facility] ([place]) Comment on above: Performed By: #### F E, TSH, CMP, GFR, LIPID, CBC, ADIFF, ANEU #### [address] [address] RBC #/vol (Bld) 4.47 10 6/mcL Normal 4.10-5.30 [facility] ([place]) Comment on above: Performed By: #### F E, TSH, CMP, GFR, LIPID, CBC, ADIFF, ANEU #### [place] [address] WBC #/vol (Bld) 4.80 10 3/mcL Normal 4.50-10.80 [facility] ([place]) Comment on above: Performed By: #### F E, TSH, CMP, GFR, LIPID, CBC, ADIFF, ANEU #### [address] [address] .GFRon 11-22-2018 GFR Non- >60 Normal [facility] ([place]) Comment on above: Result Comment: GFR Population mean for , Non- Americans Ages 20-29 = 116 mL/min/1.73 sq.m. Ages 30-39 = 107 mL/min/1.73 sq.m. Ages 40-49 = 99 mL/min/1.73 sq.m. Ages 50-59 = 93 mL/min/1.73 sq.m. Ages 60-69 = 85 mL/min/1.73 sq.m. Ages 70+ = 75 mL/min/1.73 sq.m. Chronic Kidney Disease: Less than 60 mL/min/1.73 square meters End Stage Renal Disease: Less than 15 mL/min/1.73 square meters Performed By: #### F E, TSH, CMP, GFR, LIPID, CBC, ADIFF, ANEU #### [place] [place] [address] GFR >60 Normal [facility] ([place]) Comment on above: Result Comment: GFR Population mean for , Non- Americans Ages 20-29 = 116 mL/min/1.73 sq.m. Ages 30-39 = 107 mL/min/1.73 sq.m. Ages 40-49 = 99 mL/min/1.73 sq.m. Ages 50-59 = 93 mL/min/1.73 sq.m. Ages 60-69 = 85 mL/min/1.73 sq.m. Ages 70+ = 75 mL/min/1.73 sq.m. Chronic Kidney Disease: Less than 60 mL/min/1.73 square meters End Stage Renal Disease: Less than 15 mL/min/1.73 square meters Performed By: #### F E, TSH, CMP, GFR, LIPID, CBC, ADIFF, ANEU #### [address] [address] CMPon 11-22-2018 Albumin/Globulin mass ratio 1.3 {ratio} Normal 0.9 - 1.6 {ratio} [facility].; [facility]. Comment on above: Performed By: #### F E, TSH, CMP, GFR, LIPID, CBC, ADIFF, ANEU #### [address] [address] ALP enzyme act/vol 72 U/L Normal 38 - 126 U/L [facility].; [facility], [facility]. Comment on above: Performed By: #### F E, TSH, CMP, GFR, LIPID, CBC, ADIFF, ANEU #### [place] [address] ALT enzyme act/vol 32 U/L Normal 10-49 [facility] ([place]) Comment on above: Performed By: #### F E, TSH, CMP, GFR, LIPID, CBC, ADIFF, ANEU #### [place] [address] Bili Total 0.2 mg/dL Normal 0.2-1.2 [facility] ([place]) Comment on above: Performed By: #### F E, TSH, CMP, GFR, LIPID, CBC, ADIFF, ANEU #### [place] [address] Creatinine mass conc 0.73 mg/dL Normal 0.50 - 1.20 mg/dL [facility].; [facility]. Comment on above: Performed By: #### F E, TSH, CMP, GFR, LIPID, CBC, ADIFF, ANEU #### [address] [address] Globulin mass conc (S) 3.1 G/dL Normal 1.5 - 3.8 g/dL [facility].; [facility], [facility]. Comment on above: Performed By: #### F E, TSH, CMP, GFR, LIPID, CBC, ADIFF, ANEU #### [place] [address] Protein mass conc 7.2 G/dL Normal 6.0 - 8.5 g/dL [facility].; [facility]. Comment on above: Performed By: #### F E, TSH, CMP, GFR, LIPID, CBC, ADIFF, ANEU #### [place] [address] Urea nitrogen/Creatinine mass ratio 19.2 ratio Normal 10.0-22.0 [facility] ([place]) Comment on above: Performed By: #### F E, TSH, CMP, GFR, LIPID, CBC, ADIFF, ANEU #### [place] [address] Albumin mass conc 4.1 G/dL Normal 3.2-4.8 [facility] ([place]) Comment on above: Performed By: #### F E, TSH, CMP, GFR, LIPID, CBC, ADIFF, ANEU #### [place] [address] AST enzyme act/vol 21 U/L Normal 8 - 34 U/L [facility].; [facility]. Comment on above: Performed By: #### F E, TSH, CMP, GFR, LIPID, CBC, ADIFF, ANEU #### [place] [address] Calcium mass conc 9.0 mg/dL Normal 8.4 - 10.1 mg/dL [facility]; [facility], [facility]. Comment on above: Performed By: #### F E, TSH, CMP, GFR, LIPID, CBC, ADIFF, ANEU #### [place] [address] Chloride molar conc 104 mmol/L Normal 98 - 110 meq/L [facility]; [facility], [facility]. Comment on above: Performed By: #### F E, TSH, CMP, GFR, LIPID, CBC, ADIFF, ANEU #### [place] [id number] CO2 molar conc 30 mmol/L Normal 22 - 32 meq/L [facility].; [facility], [facility]. Comment on above: Performed By: #### F E, TSH, CMP, GFR, LIPID, CBC, ADIFF, ANEU #### [place] [address] Electrolyte Balance 7.0 mEq/L Normal 4.0 - 15 .0 meq/L [facility].; [facility], [facility]. Comment on above: Performed By: #### F E, TSH, CMP, GFR, LIPID, CBC, ADIFF, ANEU #### [place] [address] Glucose mass conc 92 mg/dL Normal 70 - 110 mg/dL [facility].; [facility], [facility]. Comment on above: Performed By: #### F E, TSH, CMP, GFR, LIPID, CBC, ADIFF, ANEU #### [place] [address] Potassium molar conc 3.8 mmol/L Normal 3.5 - 5 .0 meq/L [facility].; [facility], [facility] Comment on above: Performed By: #### F E, TSH, CMP, GFR, LIPID, CBC, ADIFF, ANEU #### [place] [address] Sodium molar conc 141 mmol/L Normal 136 - 145 meq/L [facility].; [facility], [facility]. Comment on above: Performed By: #### F E, TSH, CMP, GFR, LIPID, CBC, ADIFF, ANEU #### [place] [address] Urea nitrogen mass conc 14.0 mg/dL Normal 8.0 - 22.0 mg/dL [facility].; [facility], [facility] Comment on above: Performed By: #### F E, TSH, CMP, GFR, LIPID, CBC, ADIFF, ANEU #### [place] [id number] FEon 11-22-2018 Iron mass conc 72 ug/dL Normal 37 - 170 ug/dL [facility].; [facility]. Comment on above: Performed By: #### F E, TSH, CMP, GFR, LIPID, CBC, ADIFF, ANEU #### [address] [address] LIPIDon 11-22-2018 Cholesterol in HDL mass conc 51 mg/dL Normal 40 - 59 mg/dL [facility].; [facility]. Comment on above: Result Comment: HDL Reference Interval: Less than 40 Low - high risk 60 or above Optimal/lowers risk Performed By: #### F E, TSH, CMP, GFR, LIPID, CBC, ADIFF, ANEU #### [address] [address] Cholesterol in LDL mass conc 111 mg/dL Normal 0 - 129 mg/dL [facility].; [facility] Comment on above: Result Comment: LDL is a calculated result and requires a 12- hr fast. LDL Reference Interval: Less than 100 Optimal 100-129 Near or above optimal 130-159 Borderline high risk 160-189 High risk 190 and above Very high risk Performed By: #### F E, TSH, CMP, GFR, LIPID, CBC, ADIFF, ANEU #### [address] [address] Cholesterol mass conc 194 mg/dL Normal 50 - 1 99 mg/dL [facility].; [facility]. Comment on above: Result Comment: Chol esterol Reference Interval: Less than 200 Desirable 200-239 Borderline high risk 240 and above High risk Performed By: #### F E, TSH, CMP, GFR, LIPID, CBC, ADIFF, ANEU #### [address] [address] Triglyceride mass conc 160 mg/dL Abnormal 3 - 149 mg/dL [facility].; [facility]. Comment on above: Result Comment: Trig lyceride Reference Interval: Less than 150 Normal 150-199 Borderline high risk 200-499 High risk 500 or higher Very high risk Performed By: #### F E, TSH, CMP, GFR, LIPID, CBC, ADIFF, ANEU #### [place] [address] Laboratory - Chemistry and C hemistry - challengeon 11-22-2018 Albumin BCP dye [Mass/Vol] 4.1 g/dL Normal 3.2 - 4.8 g/dL [facility] ALT No additional P-5'-P [Catalytic activity/Vol] 32 U/L Normal 10 - 49 U/L [facility].; [place] - [facility] ALT With P-5'-P [Catalytic activity/Vol] 32 U/L Normal 10 - 49 U/L [facility] AST With P-5'-P [Catalytic activity/Vol] 21 U/L Normal 8 - 34 U/L [facility], [employer] [facility] Bilirubin [Mass/Vol] 0.2 mg/dL Normal 0.2 - 1 .2 mg/dL [facility], [employer].; [employer] [facility] GFR/1.73 sq M.predicted among blacks MDRD (S/P/Bld) [Vol rate/Area] mL/min/{1.73_m2} Normal [facility], [employer].; [facility] Work Phone: GFR/1.73 sq M.predicted among non-blacks MDRD (S/P/Bld) [Vol rate/Area] mL/min/{1.73_m2} Normal [facility].; [employer] [facility] Work Phone: TSH Qn 1.910 m[IU]/L Normal 0.360 - 3.740 {mcIU/mL} [facility].; [facility] Urea nitrogen/Creatinine [Mass ratio] 19.2 {ratio} Normal 10.0 - 22.0 {ratio} [facility] [employer] [facility] Laboratory - Hematology and Cell countson 11-22-2018 Basophils (Bld) [#/Vol] 0.00 {10^3/mcL} Normal 0.00 - 0.27 {10^3/mcL} [employer] [facility] [employer] Work Phone: Eosinophils (Bld) [#/Vol] 0.20 {10^3/mcL} Normal 0.00 - 0.65 {10^3/mcL} [employer] [facility] [employer], [employer] Work Phone: Lymphocytes (Bld) [#/Vol] 1.40 {10^3/mcL} Normal 0.90 - 4.32 {10^3/mcL} [employer] [facility] [employer], [employer]. Work Phone: Monocytes (Bld) [#/Vol] 0.30 {10^3/mcL} Normal 0.09 - 1.40 {10^3/mcL} [employer], [employer]. Work Phone: Neutrophils (Bld) [#/Vol] 2.90 {10^3/mcL} Normal 2.25 - 8.10 {10^3/mcL} [employer] [employer] [facility] [employer], [employer] Work Phone: Platelets (Bld) [#/Vol] 255 {10^3/mcL} Normal 150 - 450 {10^3/mcL} [employer] RBC (Bld) [#/Vol] 4.47 {10^6/mcL} Normal 4.10 - 5.30 {10^6/mcL} [employer] [facility] [employer], [employer]. WBC (Bld) [#/Vol] 4.80 {10^3/mcL} Normal 4.50 - 10.80 {10^3/mcL} [employer] [employer] [facility] [employer], [employer] No Panel Informationon 11-22 Eosinophil, Absolute 0.20 {10^3/mcL} Normal 0.00 - 0.65 {10^3/mcL} [facility] [employer]; [employer] [facility] [employer] [facility] Work Phone: Top Collar Baster Cytology Report See Note Normal [facility] [employer]; [employer] [facility] [employer] [facility] TSHon 11-22-2018 Thyrotropin Qn 1.910 mcIU/mL Normal 0.360-3.740 [facility] ([place]) Comment on above: Result Comment: Angelita tate note as of 03/28/17 new pediatric reference intervals were added for this test. Performed By: #### F E, TSH, CMP, GFR, LIPID, CBC, ADIFF, ANEU #### [place] [address] Vital Signs Date Time Vital Sign Value Performing Clinician Facility 04-10-2025 08:35-0400 Body height 172.72 cm Larisa Jamess [employer] Work Phone: [facility] 04-10-2025 08:34-0400 Body mass index (BMI) [Ratio] 34.7 kg/m2 Larisa Leipsic [employer] Work Phone: [facility] 04-10-2025 08:34-0400 Body weight 103.41 kg Larisa Ryan [employer] Work Phone: [facility] 04-10-2025 08:34-0400 Diastolic blood pressure 90 mm[Hg] Larisa Jamess [employer] Work Phone: [facility] 04-10-2025 08:34-0400 Systolic blood pressure 149 mm[Hg] Larisa Leipsic [employer] Work Phone: [facility] 03-28-2025 15:25-0400 Body temperature 97 [degF] Larisa Leipsic [employer] Work Phone: [facility] 03-28-2025 15:25-0400 Diastolic blood pressure 88 mm[Hg] Larisa Ryan [employer] Work Phone: [facility] 03-28-2025 15:25-0400 Heart rate 59 /min Larisa Davis [employer] Work Phone: [facility] 03-28-2025 15:25-0400 Respiratory rate 16 /min Larisa Jamess [employer] Work Phone: [facility] 03-28-2025 15:25-0400 SaO2% (BldA) [Mass fraction] 94 % Larisa Jamess [employer] Work Phone: [facility] 03-28-2025 15:25-0400 Systolic blood pressure 134 mm[Hg] Larisa Jamess [employer] Work Phone: [facility] 03-28-2025 12:50-0400 Body height 172.72 cm Larisa Jamess [employer] Work Phone: [facility] 03-28-2025 12:50-0400 Body mass index (BMI) [Ratio] 34.2 kg/m2 Larisa Jamess [employer] Work Phone: [facility] 03-28-2025 12:50-0400 Body weight 102 kg Larisa Davis [employer] Work Phone: [facility] 02-27-2025 14:38-0400 Body height 172.09 cm Susy Amador SCALLOP CUTTER MACHINE [facility], [facility].; [facility] 02-27-2025 14:38-0400 Body mass index (BMI) [Ratio] 34 kg/m2 Susy Perry [facility], [facility].; [facility] 02-27-2025 14:38-0400 Body surface area Derived from formula 2.13 m2 Susy Perry [facility].; [facility] 02-27-2025 14:38-0400 Body weight 100.7 kg Susyford Amador [facility], [facility].; [facility], [facility] 02-27-2025 14:38-0400 Diastolic blood pressure 87 mm[Hg] Susy Amador SCALL[employer] CUTTER MACHINE [facility], [facility].; [facility] [employer]. Comment on above: Patient Position: Sitting; Cuff Location : Left Arm; Cuff Size: Standard 02-27-2025 14:38-0400 Heart rate 61 /min Susyford Amador VAISHALI [facility], Inc.; [facility] Comment on above: Pattern: Regular 02-27-2025 14:38-0400 Systolic blood pressure 143 mm[Hg] Susy Amador SCALL[employer] CUTTER MACHINE [facility], [facility].; [facility] Comment on above: Patient Position: Sitting; Cuff Location : Left Arm; Cuff Size: Standard 02-20-2025 10:04-0400 Diastolic blood pressure 83 mm[Hg] GLENIS BURT RN [facility] Comment on above: Patient Position: Sitting; Cuff Location : Left Arm; Cuff Size: Standard 02-20-2025 10:04-0400 Heart rate 59 /min GLENIS BURT RN [facility], [facility].; [facility] [employer]. Comment on above: Pattern: Regular 02-20-2025 10:04-0400 Systolic blood pressure 125 mm[Hg] GLENIS BURT RN [facility].; [facility] [employer]. Comment on above: Patient Position: Sitting; Cuff Location : Left Arm; Cuff Size: Standard 02-16-2025 11:58-0400 Body height 172.72 cm Larisa Davis [employer] Work Phone: [facility] 02-16-2025 11:58-0400 Body mass index (BMI) [Ratio] 33.3 kg/m2 Larisa Davis [employer] Work Phone: [facility] 02-16-2025 11:58-0400 Body weight 99.56 kg Larisa Davis [employer] Work Phone: [facility] 02-16-2025 11:58-0400 Diastolic blood pressure 96 mm[Hg] Larisa Ryan [employer] Work Phone: [facility] 02-16-2025 11:58-0400 Systolic blood pressure 170 mm[Hg] Larisa Leipsic [employer] Work Phone: [facility] 01-17-2025 13:05-0400 Body height 172.72 cm Larisa Leipsic [employer] Work Phone: [facility] 01-17-2025 13:05-0400 Body mass index (BMI) [Ratio] 33.3 kg/m2 Larisa Leipsic [employer] Work Phone: [facility] 01-17-2025 13:05-0400 Body weight 99.39 kg Larisa Ryan [employer] Work Phone: [facility] 01-17-2025 13:05-0400 Diastolic blood pressure 100 mm[Hg] Larisa Ryan [employer] Work Phone: [facility] 01-17-2025 13:05-0400 Systolic blood pressure 166 mm[Hg] Larisa Leipsic [employer] Work Phone: [facility] 11-22-2018 10:39-0400 Body height 172.09 cm Josie Aguilera [facility], [facility].; [facility], [facility] 11-22-2018 10:39-0400 Body mass index (BMI) [Ratio] 30.48 kg/m2 Josie Lundberg RN [facility], [facility].; [facility], [facility] 11-22-2018 10:39-0400 Body surface area Derived from formula 2.03 m2 Josie Lundberg RN [facility], [facility].; [facility], [facility] 11-22-2018 10:39-0400 Body temperature 97.9 [degF] Josie Aguilera [facility], [facility].; [facility], [facility] Comment on above: Method: Oral 11-22-2018 10:39-0400 Body weight 90.27 kg Josie Lundberg RN [facility] [employer] [facility] 11-22-2018 10:39-0400 Diastolic blood pressure 75 mm[Hg] Josie Lundberg RN [facility].; [employer] [facility] [employer] Comment on above: Patient Position: Sitting; Cuff Location : Left Arm; Cuff Size: Standard 11-22-2018 10:39-0400 Heart rate 69 /min [facility]ie Lund[facility] RN [facility] [employer] [facility] [employer] Comment on above: Pattern: Regular 11-22-2018 10:39-0400 Systolic blood pressure 116 mm[Hg] Josie Lundberg RN [facility] [employer] [employer]. Comment on above: Patient Position: Sitting; Cuff Location : Left Arm; Cuff Size: Standard 04-05-2018 11:04-0400 Body height 172.09 cm MARCIN BERMEO MD Work Phone: [facility]. 04-05-2018 11:04-0400 Body mass index (BMI) [Ratio] 30.63 kg/m2 MARCIN BERMEO MD Work Phone: [employer]. 04-05-2018 11:04-0400 Body surface area Derived from formula 2.04 m2 MARCIN BERMEO MD Work Phone: [employer]. 04-05-2018 11:04-0400 Body temperature 97.9 [degF] MARCIN BERMEO MD Work Phone: [employer] [facility] [employer] Comment on above: Method: Oral 04-05-2018 11:04-0400 Body weight 90.72 kg MARCIN BERMEO MD Work Phone: [facility] [employer]. 04-05-2018 11:04-0400 Diastolic blood pressure 79 mm[Hg] MARCIN BERMEO MD Work Phone: [employer]. Comment on above: Patient Position: Sitting; Cuff Location : Left Arm; Cuff Size: Large 04-05-2018 11:04-0400 Heart rate 68 /min MARCIN BERMEO MD Work Phone: [employer]. Comment on above: Pattern: Regular 04-05-2018 11:04-0400 Systolic blood pressure 114 mm[Hg] MARCIN BERMEO MD Work Phone: [employer]. Comment on above: Patient Position: Sitting; Cuff Location : Left Arm; Cuff Size: Large 04-20-2017 15:05-0400 Body height 173.99 cm MARCIN BERMEO MD Work Phone: [employer]. 04-20-2017 15:05-0400 Body mass index (BMI) [Ratio] 30.84 kg/m2 MARCIN BERMEO MD Work Phone: [employer]. 04-20-2017 15:05-0400 Body surface area Derived from formula 2.08 m2 MARCIN BERMEO MD Work Phone: [employer]. 04-20-2017 15:05-0400 Body weight 93.35 kg MARCIN BERMEO MD Work Phone: [employer]. 04-20-2017 15:05-0400 Diastolic blood pressure 71 mm[Hg] MARCIN BERMEO MD Work Phone: [employer]. Comment on above: Patient Position: Sitting; Cuff Location : Left Arm; Cuff Size: Large 04-20-2017 15:05-0400 Heart rate 79 /min MARCIN BERMEO MD Work Phone: [facility].; [employer] [facility] [employer] [facility] Comment on above: Pattern: Regular 04-20-2017 15:05-0400 Systolic blood pressure 103 mm[Hg] MARCIN BERMEO MD Work Phone: [facility].; [employer] [facility] Comment on above: Patient Position: Sitting; Cuff Location : Left Arm; Cuff Size: Large 09-03-2015 10:36-0500 Body height 172.72 cm MARCIN BERMEO MD Work Phone: [facility].; [employer] [facility] [employer]. 09-03-2015 10:36-0500 Body mass index (BMI) [Ratio] 30.41 kg/m2 MARCIN BERMEO MD Work Phone: [facility].; [employer] [facility] 09-03-2015 10:36-0500 Body surface area Derived from formula 2.04 m2 MARCIN BERMEO MD Work Phone: [facility].; [employer] [facility] 09-03-2015 10:36-0500 Body weight 90.72 kg MARCIN BERMEO MD Work Phone: [facility].; [employer] [facility] 09-03-2015 10:36-0500 Diastolic blood pressure 85 mm[Hg] MARCIN BERMEO MD Work Phone: [facility].; [employer] [facility] [employer] Comment on above: Patient Position: Sitting; Cuff Location : Left Arm; Cuff Size: Large 09-03-2015 10:36-0500 Heart rate 60 /min MARCIN BERMEO MD Work Phone: [facility] DepartmentRichard [employer]; [facility] Comment on above: Pattern: Regular 09-03-2015 10:36-0500 Systolic blood pressure 125 mm[Hg] MARCIN BERMEO MD Work Phone: [facility] [employer]; [facility] Comment on above: Patient Position: Sitting; Cuff Location : Left Arm; Cuff Size: Large Encounters Encounter Date Encounter Type Care Provider Facility Start: 04-28-2025 ambulatory Alissa Galdamez lity:[facility] Start: 04-10-2025 End: 04-10-[address] Alissa Hartley MD -[facility] Work Phone: Start: 04-10-2025 End: 04-10-2025 ambulatory Larisa Davis [employer]-C Work Phone: -[facility] Start: 04-09-2025 Encounter for other preprocedural examination Alissa Hartley [facility] Start: 03-28-2025 End: 03-28-2025 Admission to same day surgery center Dr. Alissa Hartley MD [facility] Start: 03-28-2025 End: 03-28-2025 ambulatory Larisa Davis [employer]-C Work Phone: -[facility] Start: 03-28-2025 Non-patient / Non-visit [facility]. Uriah Hartley MD -[facility] Start: 03-16-2025 Review NATALIYA SAUNDERS CH GLASS TECHNOLOGIST-C Work Phone: [facility] Start: 02-27-2025 End: 02-27-2025 Office outpatient visit 10 minutes NATALIYA MONAHAN GLASS TECHNOLOGIST-C Work Phone: [facility] Start: 02-27-2025 End: 02-27-2025 Physical examination NATALIYA MONAHAN GLASS TECHNOLOGIST-C Work Phone: [facility]; [facility] Start: 02-21-2025 End: 02-21-2025 ambulatory Alissa Hartley Facility:[facility] Start: 02-21-2025 End: 02-21-2025 Non-patient / Non-visit Dr. Jim Brenner MD -[facility] Work Phone: Start: 02-20-2025 End: 02-20-2025 Office outpatient visit 10 minutes NATALIYA MONAHAN GLASS TECHNOLOGIST-C Work Phone: [facility] [employer] Start: 02-16-2025 End: 02-16-[address] Alissa Hartley MD -[facility] Work Phone: Start: 02-16-2025 End: 02-16-2025 ambulatory Larisa Ryan [employer] C[employer] COOK-C Work Phone: [facility] Work Phone: Start: 01-17-2025 End: 01-17-2025 ambulatory Larisa Ryan [employer] C[employer] COOK-C Work Phone: [facility] Work Phone: Start: 01-17-2025 End: 01-17-2025 Patient encounter procedure Larisa Ryan FALAFEL CART COOK-C -Laboratory, Specimen Work Phone: Start: 01-17-2025 End: 01-17-2025 Patient encounter procedure Larisa Leipsic FALAFEL CART COOK-C -[facility] Work Phone: Start: 01-17-2025 End: 01-17-2025 ambulatory Larisa Ryan FALAFEL CART COOK Facility[facility] Start: 01-17-2025 End: 01-17-2025 ambulatory Larisa Leipsic FALAFEL CART COOK Facility:[facility] Start: 03-07-2024 End: 03-07-2024 Emergency department patient visit CORKY MUHAMMAD [facility] Start: 11-30-2018 End: 11-30-2018 Results Review MARCIN BERMEO MD Work Phone: [facility] DepartmentRichard [employer] Start: 11-22-2018 End: 11-22-2018 Nutrition therapy MARCIN BERMEO MD Work Phone: [facility] Start: 11-22-2018 End: 11-22-2018 Historical Summary MARCIN BERMEO MD [facility] Start: 11-22-2018 End: 11-27-2018 Patient encounter procedure MOOSE BERMEO Facility:A Start: 11-22-2018 End: 11-22-2018 Office outpatient visit 25 minutes MARCIN BERMEO MD [facility] Start: 11-22-2018 End: 11-22-2018 Patient encounter [facility] Start: 04-05-2018 End: 04-05-2018 Office outpatient visit 15 minutes MARCIN BERMEO MD [facility] Start: 04-20-2017 End: 04-20-2017 Office outpatient visit 15 minutes MARCIN BERMEO MD [facility] Start: 09-03-2015 End: 09-03-2015 Office outpatient visit 10 minutes MARCIN BERMEO MD Work Phone: [facility] Start: 08-28-2011 End: 08-28-2011 Historical Summary MARCIN BERMEO MD [facility]: [facility] Procedures Date Procedure Procedure Detail Performing Clinician Start: 03-28-2025 Hysteroscopy Larisa vargas FALAFEL CART COOK-C Work Phone: Start: 02-27-2025 End: 02-27-2025 Dischrg meds reconciled w/current med list NATALIYA MONAHAN GLASS TECHNOLOGIST-C Work Phone: Start: 03-07-2024 Urinalysis CORKY SMITH Comment on above: Result Comment: URIN ALYSIS Performed By: #### 2 [id number] #### [facility],[address] [address] Start: 11-22-2018 End: 11-22-2018 Dischrg meds reconciled w/current med list MOOSE BERMEO MD Work Phone: Start: 11-22-2018 End: 11-22-2018 Obtaining screen pap smear MOOSE BERMEO MD Work Phone: Comment on above: Negative. Start: 11-22-2018 End: 11-22-2018 Urinary Incontinence Josie Lundberg RN Comment on above: Sometimes Start: 04-09-2018 End: 04-09-2018 Screening mammography MOOSE BERMEO MD Work Phone: Comment on above: Normal. benign cyst Right Start: 06-17-2010 End: 06-17-2010 Abscess I&D Josie Lundberg RN Comment on above: Right. Breast. Histo ry of Trauma 2009. Dr. Jose Francisco Amador LPN Plan of Treatment Date Care Activity Detail Author Start: 03-28-2025 Ambulation without limitation [facility] Start: 03-28-2025 Medical regimen orde rs management [facility] Start: 03-28-2025 Medication education [facility] Start: 03-28-[address] [facility] Start: 03-28-2025 Procedure discontinued [facility] Start: 03-28-2025 Taking patient vital signs [facility] Start: 03-28-2025 Vital signs measurements [facility] Start: 03-28-2025 [facility] Start: 03-28-2025 Anes hysteroscopy&/hysterosal pingography w/bx ANESTH HYSTEROSCOPE/GRAPH [facility] Start: 03-28-2025 Hysteroscopy bx endometrium&/polypc w/wo d&c HYSTEROSCOPY BIOPSY [facility] Start: 02-27-2025 Patient encounter procedure [facility] [employer] Start: 02-20-2025 Patient encounter procedure Medical; ACUTE ILLNESS - [place] wants to start bp meds RR [facility] [employer] Start: 20-Feb-2025 10:00-04:00 MARIAELENA MONAHAN [facility] Start: 11-22-2018 Patient Education SUPADWAYNE CAVANAUGHIC MILESFAIZAN Indication: Tinea versicolor Start: 22-Nov-2018 Instruction Type: Patient Education [facility] [employer]; [employer] [facility] [employer] Start: 04-05-2018 Screening mammograph y bi 2-view breast inc cad MAMMOGRAM BREAST BILATERAL SCREENING DIGITAL (04492) Start: 05-Apr-2018 [facility] [employer] [employer] Start: 04-05-2018 Us breast uni real t porsche with image complete US BREAST(S) ([id number]) Start: 05-Apr-2018 Intent Comments: Right breast [facility] [employer]; [employer] [facility] [employer] Comment on above: Right breast Start: 04-20-2017 Patient Education PLANTAR FACI ITIS Indication: Plantar fasciitis, left Start: 20-Apr-2017 Instruction Type: Patient Education [facility] [employer]; [employer] [facility] [employer] Payers Date Payer Category Payer Unknown 2025 Self-pay 2025 Unknown [id number] 1975 Unknown [id number] 2.16.8 [id number] Unknown 126 Unknown [id number] 2.16.8 [id number] Unknown [id number] 2.16.8 [id number] Unknown [id number] 2.16.8 [id number] Unknown [id number] 2.16.8 [id number] Unknown [id number] 2.16.8 [id number] Unknown [id number] 2.16.8 [id number] Unknown [id number] 2.16.8 [id number] Unknown [id number] 2.16.8 [id number] Unknown [id number] 2.16.8 [id number] Social History Date Type Detail Facility Start: 09-12-2024 End: 03-14-2025 Tobacco smoking status NHIS Never smoked tobacco (finding) [facility] Start: 1975 Sex Assigned At Female [facility] Alcohol Use: Alcohol Use: ; N o Alcohol Use. [facility] Caffeine Use - Current Caffeine Use - Current [facility] [employer]; [facility] Marital status: Marital status: ; . [facility] Tobacco use: Tobacco use: ; N ever smoker. [facility] NEGATED: Highlighted row Not [facility] Goals Date Patient Goal Desired Activity /State Mental Status Date Assessment Result Facility 03-28-2025 Cognitive function Level Of Cons ciousness Awake;Drowsy [facility] Work Phone: 03-28-2025 Cognitive function Voice/Name [facility] Work Phone: Clinical Notes 01-17-2025 to 03-28-2025 Note Date & Type Note Facility 03-28-2025 Consult note [facility] 03-28-2025 History and physical note Note Date/Time March 28, 2025 1:14pm [facility] Medical Records Department [address] [place] [address] History & Physical Exam 03/28/25 1217 MR#: [id number] Acct: [id number] Name: CHRIS ARITA Rep #:[id number] : 1975 49 From: Alissa ibrahim MD PCP: Dr. Marcin Bermeo MD Status:REG S DC Location: [place] [address] History and Physical Date of Admission: 03/28/25 Intake Vital Signs 01/17/2513:05 02/16/2511:58 Height 5 ft 8 in 5 ft 8 in Weight: 219 lb 2 oz 219 lb 8 oz BMI 33.3 33.3 BP 166/100 H 170/96 H Intake Visit Reasons: surgical consult Infection Control Preventionist Required: No Is patient in pain?: No Allergies No Known Allergies Allergy (Verified 02/16/25 12:04) Post menopausal: No Patient : No : No PFSH Medical History Breast abscess Endometriosis Surgical History S/P D&C (status post dilation and curettage) Family History Mother Breast cancer Social History adopted: No household members: spouse and children housing: house number of children: 4 current occupational status: unemployed pets and animals: Yes pets and animals: dog(s) history of recent travel: No sexually active: Yes Smoking Status: Never smoker second hand exposure: No alcohol intake: current alcohol intake frequency: a few times a week Alcohol type: wine substance use type: does not use well-balanced diet: daily or most days caffeine: Yes Type: coffee Number of servings: 2 what type of physical activity do you participate in: walking frequency: 3-4 times per week do you feel safe at home: Yes HPI surgical consult Details: CHRIS ARITA is a 49 year old who presents for persistent irregular bleeding. she had hyperplasia diagnosed last year and was treated with megace, but still has had irregular bleeding despite the therapy and the lining is thickened. repeat EMB was normal. she denies any pelvic pain or pressure or prolapse. Female Reproductive History Menopausal Symptoms: No night sweats History 4 Elective abortions Hx Para 4 Spontaneous abortions Hx # Term Pregnancies Ectopic pregnancies Hx # Pregnancies Multiple births # of living children Past Pregnancies Del. Date Name GA/Weeks Outcome Route Bth Weight Infant Gen Labor Lgth Anesthesia Del Locatn Provider FOB Unknown Tangela Unknown Raulito Unknown Judith Unknown Violette ROS Const Constitutional: Denies fatigue, night sweats, weight gain or weight loss ENT ENT: Reports system reviewed and no additional complaints, except as documented Details: co headaches Cardio Card: Denies chest pain Resp Resp: Reports dyspnea; Denies cough GI GI: Reports as per HPI; Denies abdominal pain, constipation, nausea or vomiting : Denies nipple discharge, urinary frequency, urinary incontinence, urinary hesitancy, urinary urgency, vaginal discharge, vaginal dryness, vaginal odor or vaginal pruritus Musc Musc: Denies arthralgias, back pain or muscle weakness Skin Skin/Breast: Denies alopecia, change in hair, dry skin, breast mass, breast pain, breast skin changes or nipple discharge Neuro Neuro: Reports system reviewed and no additional complaints, except as documented Psych Psych: Reports system reviewed and no additional complaints, except as documented Endo Endo: Denies cold intolerance, excessive sweating, heat intolerance or polydipsia Joseph/Lymph Hematologic/Lymphatic: Denies easy bleeding, Denies easy bruising and Denies lymphadenopathy Exam Const General: cooperative, healthy appearing, comfortable and no acute distress Orientation: alert [facility] Head: normal to inspection and normocephalic Ears: hearing grossly normal bilaterally and external ears normal Nose: external nose normal and nares normal Face and sinus: normal facial exam Neck Neck: normal visual inspection and no lymphadenopathy Thyroid: thyroid normal Chest Chest palpation & inspection: normal inspection of the chest Resp Effort & Inspection: normal respiratory effort Auscultation: clear to auscultation bilaterally Cardio Rate: regular rate Rhythm: regular rhythm Heart Sounds: S1 normal and S2 normal GI Inspection: normal to inspection and non-distended Palpation: soft and no hepatosplenomegaly Musc Other: gross motor intact no deficits, full bilateral strength Skin General: no rashes or lesions noted Neuro General: patient alert, patient awake, moves all extremities and no focal motor deficits Motor: muscle tone normal throughout Extrem General: normal to inspection and no pedal edema Psych Appearance: grossly normal Mental Status: mental status grossly normal Affect: normal affect Speech and Movement: speech and movement normal Coding Level of Care Code Off vis,est,level 4 Diagnoses Abnormal uterine bleeding N93.9 Endometrial hyperplasia without atypia N85.00 Hypertension I10 Assessment and Plan Assessment and Plan (1) Abnormal uterine bleeding: Status: Acute Comment: US:20mm lining, EMB hyperplasia. persistent bleeding after hyperplasia treatment. (2) Endometrial hyperplasia without atypia: Status: Acute Comment: s/p megace. needs d and c hysteroscopy, to be both diagnostic and possibly therapeutic, wait 1-2 months after d and c and if still persistent bleeding consider IUD or hysterectomy. not an ablation candidate due to history of hyperplasia (3) Hypertension: Status: Chronic Comment: needs medical clearance Medications: Discontinued megestrol Discontinued Reason: Order Completed 40 mg PO BID 90 tabs 1RF Plan After discussing the patient's diagnosis and treatment plan options, patient wishes to proceed with surgical management. I have discussed with the patient the risks, benefits, and alternatives of the procedure which include but are notlimited to risks of anesthesia, bleeding, infection, possible damage to bowel, bladder, or surrounding vasculature which could lead to additional surgery to evaluate any complications. Patient agrees to procedure and wishes to proceed. ACOG/uptodate references given for additional information regarding procedure. 03/28/251216 <Electronically signed by Alissa Hartley MD> Cosigner Signature (if applicable): CC: Dr. Alissa Hartley MD; Dr. Marcin Bermeo MD~ Signed ADDENDUM by Dr. Alissa Hartley MD on 03/28/25 at 1217 Addendum UPDATE- I have seen the patient and performed any clinically relevant updates to the history and physical exam. Alissa Hartley MD 03/28/251216<Electronically signed by Alissa Hartley MD> Cosigner Signature (if applicable): cc: Dr. Alissa Hartley MD; Dr. Marcin Bermeo MD ~* Signed ADDENDUM by Dr. Alissa Hartley MD on 03/28/25 at 1314 Addendum UPDATE- I have seen the patient and performed any clinically relevant updates to the history and physical exam. Alissa Hartley MD 03/28/25 1314<Electronically signed by Alissa Hartley MD> Cosigner Signature (if applicable): cc: Dr. Alissa Hartley MD; Dr. Marcin Bermeo MD ~* Signed [facility] Work Phone: 1(879) 376-292207-15-2025 Discharge summary [facility] Medical Records Department [address] [place] [address] Instructions for Home/Discharge Instructions 03/28/25 1446 MR#: [id number] Acct: [id number] Name: CHRIS ARITA Rep #:[id number] : 1975 49 From: Alissa ibrahim MD PCP: Dr. Marcin Bermeo MD Status:REG S DC Discharge Instructions DC O2, CPAP, BIPAP needs Home O2 Discharge instructions: No Dressing / Incision Discharge Activity: Return to Normal Activity, May Shower and May Take a Tub Bath (after 1 week) May resume sexual activity in: 1-2 weeks Weight Bearing Status: Weight bearing as tolerated Lifting Restrictions: none Dressing / Incision Call your doctor if you observe: Fever of 101 or Higher, Using more than 1 pad per hour, Shortness of breath and Uncontrolled pain Follow Up Care Please Follow Up With: Alissa Hartley MD When: Call [phone] to schedule appointment. Test Results: Test results from this visit will be discussed in further detail at your follow- up appointment, if applicable. Discharge Plan Admission Attending Provider: Alissa Hartley Primary Care Provider: Marcin Bermeo Instructions Print Language: Venezuelan Discharge Orders/Prescriptions Prescriptions: No Action amlodipine 5 mg tablet 5 mg PO DAILY Referrals / Follow Up: Marcin Bermeo MD [Primary Care Provider] - Disposition Disposition (needs filled in before D/C Order can be placed): Home, Self Care 03/28/25 1504Alissa Hartley MD CC: Dr. Marcin Bermeo MD ~ Signed [facility]07-15-2025 Procedure note [facility] Medical Records Department [address] [place] [address] Operative Report 03/28/25 1446 MR#: [id number] Acct: [id number] Name: CHRIS ARITA Rep #:[id number] : 1975 49 From: Alissa ibrahim MD PCP: Dr. Marcin Bermeo MD Status:REG S DC Location: [place] [address] Problems Associated Problem List Diagnoses (1) Hypertension: (2) Endometrial hyperplasia without atypia: (3) Abnormal uterine bleeding: (4) Status post hysteroscopy: Multi Select Codes Urinary/Genital Urinary/Genital CPT Codes: 85902 Hysteroscopy,EMC, Polypectomy Operative Report (Standard) Operative Information Date of Procedure: 03/28/25 Pre-Operative Diagnosis: see problem list comments Post-Operative Diagnosis: same Surgery/Procedure Performed: dilation and curettage hysteroscopy forms analyst: No Type of Anesthesia: IV Sedation and Local RN Documented Start/Stop Times: Operation Date: 03/28/25 14:15 Case Time Into Pre-Op 03/28/25 12:27 Out of Pre-Op 03/28/25 14:33 Anesthesia Start 03/28/25 14:36 Into Room 03/28/25 14:36 Procedure Start Time: 15:51 Procedure Stop Time: 15:59 Select all DRAINS/GRAFTS/IMPLANTS that apply: None Estimated Blood Loss: 50 Specimen collected: Yes Description of specimen(s) removed: endometrial curretings Description of surgery: Patient was prepped and draped in a normal sterile fashion under MAC anesthesia. A weighted speculum was placed in the vagina and the anterior lip of the cervixwas grasped with a single-tooth tenaculum. A paracervical block was placed with1% lidocaine. Cervix was progressively dilated to allow passage of a 7 mm hysteroscope. The lining was fully visualized and noted to have thickened lining . Uterine sounded to 8 cm. Curettage was performed and moderate amount tissue removed , sent to pathology. All instruments were removed from the vagina and excellent hemostasis was noted. Patient was awoken and taken to recovery in stable condition. Surgical Findings: thickened endometrial lining Complications Complications: No 03/28/25 1503 Cosigner Signature (if applicable): CC: Dr. Alissa Hartley MD; Dr. Marcin Bermeo MD~ Signed [facility]07-15-2025 History and physical note [facility] Medical Records Department [address] [place] [address] History & Physical Exam 03/28/25 1217 MR#: [id number] Acct: [id number] Name: CHRIS ARITA Rep #:[id number] : 1975 49 From: Alissa ibrahim MD PCP: Dr. Marcin Bermeo MD Status:REG S DC Location: [place] [address] History and Physical Date of Admission: 03/28/25 Intake Vital Signs 01/17/2513:05 02/16/2511:58 Height 5 ft 8 in 5 ft 8 in Weight: 219 lb 2 oz 219 lb 8 oz BMI 33.3 33.3 BP 166/100 H 170/96 H Intake Visit Reasons: surgical consult Infection Control Preventionist Required: No Is patient in pain?: No Allergies No Known Allergies Allergy (Verified 02/16/25 12:04) Post menopausal: No Patient : No : No PFSH Medical History Breast abscess Endometriosis Surgical History S/P D&C (status post dilation and curettage) Family History Mother Breast cancer Social History adopted: No household members: spouse and children housing: house number of children: 4 current occupational status: unemployed pets and animals: Yes pets and animals: dog(s) history of recent travel: No sexually active: Yes Smoking Status: Never smoker second hand exposure: No alcohol intake: current alcohol intake frequency: a few times a week Alcohol type: wine substance use type: does not use well-balanced diet: daily or most days caffeine: Yes Type: coffee Number of servings: 2 what type of physical activity do you participate in: walking frequency: 3-4 times per week do you feel safe at home: Yes HPI surgical consult Details: CHRIS ARITA is a 49 year old who presents for persistent irregular bleeding. she had hyperplasia diagnosed last year and was treated with megace, but still has had irregular bleeding despite the therapy and the lining is thickened. repeat EMB was normal. she denies any pelvic pain or pressure or prolapse. Female Reproductive History Menopausal Symptoms: No night sweats History 4 Elective abortions Hx Para 4 Spontaneous abortions Hx # Term Pregnancies Ectopic pregnancies Hx # Pregnancies Multiple births # of living children Past Pregnancies Del. Date Name GA/Weeks Outcome Route Bth Weight Infant Gen Labor Lgth Anesthesia Del Locatn Provider FOB Unknown Tangela Unknown Raulito Unknown Judith Unknown Violette ROS Const Constitutional: Denies fatigue, night sweats, weight gain or weight loss ENT ENT: Reports system reviewed and no additional complaints, except as documented Details: co headaches Cardio Card: Denies chest pain Resp Resp: Reports dyspnea; Denies cough GI GI: Reports as per HPI; Denies abdominal pain, constipation, nausea or vomiting : Denies nipple discharge, urinary frequency, urinary incontinence, urinary hesitancy, urinary urgency, vaginal discharge, vaginal dryness, vaginal odor or vaginal pruritus Musc Musc: Denies arthralgias, back pain or muscle weakness Skin Skin/Breast: Denies alopecia, change in hair, dry skin, breast mass, breast pain, breast skin changes or nipple discharge Neuro Neuro: Reports system reviewed and no additional complaints, except as documented Psych Psych: Reports system reviewed and no additional complaints, except as documented Endo Endo: Denies cold intolerance, excessive sweating, heat intolerance or polydipsia Joseph/Lymph Hematologic/Lymphatic: Denies easy bleeding, Denies easy bruising and Denies lymphadenopathy Exam Const General: cooperative, healthy appearing, comfortable and no acute distress Orientation: alert [facility]EN[facility] Head: normal to inspection and normocephalic Ears: hearing grossly normal bilaterally and external ears normal Nose: external nose normal and nares normal Face and sinus: normal facial exam Neck Neck: normal visual inspection and no lymphadenopathy Thyroid: thyroid normal Chest Chest palpation & inspection: normal inspection of the chest Resp Effort & Inspection: normal respiratory effort Auscultation: clear to auscultation bilaterally Cardio Rate: regular rate Rhythm: regular rhythm Heart Sounds: S1 normal and S2 normal GI Inspection: normal to inspection and non-distended Palpation: soft and no hepatosplenomegaly Musc Other: gross motor intact no deficits, full bilateral strength Skin General: no rashes or lesions noted Neuro General: patient alert, patient awake, moves all extremities and no focal motor deficits Motor: muscle tone normal throughout Extrem General: normal to inspection and no pedal edema Psych Appearance: grossly normal Mental Status: mental status grossly normal Affect: normal affect Speech and Movement: speech and movement normal Coding Level of Care Code Off vis,est,level 4 Diagnoses Abnormal uterine bleeding N93.9 Endometrial hyperplasia without atypia N85.00 Hypertension I10 Assessment and Plan Assessment and Plan (1) Abnormal uterine bleeding: Status: Acute Comment: US:20mm lining, EMB hyperplasia. persistent bleeding after hyperplasia treatment. (2) Endometrial hyperplasia without atypia: Status: Acute Comment: s/p megace. needs d and c hysteroscopy, to be both diagnostic and possibly therapeutic, wait 1-2 months after d and c and if still persistent bleeding consider IUD or hysterectomy. not an ablation candidate due to history of hyperplasia (3) Hypertension: Status: Chronic Comment: needs medical clearance Medications: Discontinued megestrol Discontinued Reason: Order Completed 40 mg PO BID 90 tabs 1RF Plan After discussing the patient's diagnosis and treatment plan options, patient wishes to proceed withsurgical management. I have discussed with the patient the risks, benefits, and alternatives of theprocedure which include but are notlimited to risks of anesthesia, bleeding, infection, possible damage to bowel, bladder, or surrounding vasculature which could lead to additional surgery to evaluate any complications. Patient agrees to procedure and wishes to proceed. ACOG/uptodate references given for additional information regarding procedure. 03/28/251216 Cosigner Signature (if applicable): CC: Dr. Alissa Hartley MD; Dr. Marcin Bermeo MD~ Signed ADDENDUM by Dr. Alissa Hartley MD on 03/28/25 at 1217 Addendum UPDATE- I have seen the patient and performed any clinically relevant updates to the history and physical exam. Alissa Hartley MD 03/28/251216 Cosigner Signature (if applicable): cc: Dr. Alissa Hartley MD; Dr. Marcin Bermeo MD ~* Signed ADDENDUM by Dr. Alissa Hartley MD on 03/28/25 at 1314 Addendum UPDATE- I have seen the patient and performed any clinically relevant updates to the history and physical exam. Alissa Hartley MD 03/28/25 1314 Cosigner Signature (if applicable): cc: Dr. Alissa Hartley MD; Dr. Marcin Bermeo MD ~* Signed [facility]07-15-2025 [facility] Medical Records Department [address] [place] [address] History Physical Exam 03/28/251216 MR#: [id number] Acct: [id number] Name: CHRIS AIRTA Joe Rep #: [id number] : 1975 49 From: Alissa Hartley MD PCP: Dr. Marcin Bermeo MD Status:[facility] Location: [place] [address] History and Physical Date of Admission: 03/28/25 Intake Vital Signs 01/17/2513:05 02/16/2511:58 Height 5 ft 8 in 5 ft 8 in Weight: 219 lb 2 oz 219 lb 8 oz BMI 33.3 33.3 BP 166/100 H 170/96 H Intake Visit Reasons: surgical consult Infection Control Preventionist Required: No Is patient in pain?: No Allergies No Known Allergies Allergy (Verified 02/16/25 12:04) Post menopausal: No Patient : No : No PFSH Medical History Breast abscess Endometriosis Surgical History S/P D C (status post dilation and curettage) Family History Mother Breast cancer Social History adopted: No household members: spouse and children housing: house number of children: 4 current occupational status: unemployed pets and animals: Yes pets and animals: dog(s) history of recent travel: No sexually active: Yes Smoking Status: Never smoker second hand exposure: No alcohol intake: current alcohol intake frequency: a few times a week Alcohol type: wine substance use type: does not use well-balanced diet: daily or most days caffeine: Yes Type: coffee Number of servings: 2 what type of physical activity do you participate in: walking frequency: 3-4 times per week do you feel safe at home: Yes HPI surgical consult Details: CHRIS ARITA is a 49 year old who presents for persistent irregular bleeding. she had hyperplasia diagnosed last year and was treated with megace, but still has had irregular bleeding despite the therapy and the lining is thickened. repeat EMB was normal. she denies any pelvic pain or pressure or prolapse. Female Reproductive History Menopausal Symptoms: No night sweats History 4 Elective abortions Hx Para 4 Spontaneous abortions Hx # Term Pregnancies Ectopic pregnancies Hx # Pregnancies Multiple births # of living children Past Pregnancies Del. Date Name GA/Weeks Outcome Route Bth Weight Infant Gen Labor Lgth Anesthesia Del Locatn Provider FOB Unknown Tangela Unknown Raulito Unknown Judith Unknown Violette ROS Const Constitutional: Denies fatigue, night sweats, weight gain or weight loss ENT ENT: Reports system reviewed and no additional complaints, except as documented Details: co headaches Cardio Card: Denies chest pain Resp Resp: Reports dyspnea; Denies cough GI GI: Reports as per HPI; Denies abdominal pain, constipation, nausea or vomiting : Denies nipple discharge, urinary frequency, urinary incontinence, urinary hesitancy, urinary urgency, vaginal discharge, vaginal dryness, vaginal odor or vaginal pruritus Musc Musc: Denies arthralgias, back pain or muscle weakness Skin Skin/Breast: Denies alopecia, change in hair, dry skin, breast mass, breast pain, breast skin changes or nipple discharge Neuro Neuro: Reports system reviewed and no additional complaints, except as documented Psych Psych: Reports system reviewed and no additional complaints, except as documented Endo Endo: Denies cold intolerance, excessive sweating, heat intolerance or polydipsia Joseph/Lymph Hematologic/Lymphatic: Denies easy bleeding, Denies easy bruising and Denies lymphadenopathy Exam Const General: cooperative, healthy appearing, comfortable and no acute distress Orientation: alert [facility] Head: normal to inspection and normocephalic Ears: hearing grossly normal bilaterally and external ears normal Nose: external nose normal and nares normal Face and sinus: normal facial exam Neck Neck: normal visual inspection and no lymphadenopathy Thyroid: thyroid normal Chest Chest palpation inspection: normal inspection of the chest Resp Effort Inspection: normal respiratory effort Auscultation: clear to auscultation bilaterally Cardio Rate: regular rate Rhythm: regular rhythm Heart Sounds: S1 normal and S2 normal GI Inspection: normal to inspection and non-distended Palpation: soft and no hepatosplenomegaly Musc Other: gross motor intact no deficits, full bilateral strength Skin General: no rashes or lesions noted Neuro General: patient alert, patient awake, moves all extremities and no focal motor deficits Motor: muscle tone normal throughout Extrem General: normal to inspection and no pedal edema Psych Appearance: grossly normal Mental Status: mental (more content not included)...[facility] 01-17-2025 Evaluation note* Diagnosis Onset Date Resolution Status Admit Date Endometrial hyperplasia with out atypia acute January 17, 2025 12 :49pm [facility] Work Phone: 1(959) 448-819005-06-2025 Evaluation note* Diagnosis Onset Date Resolution Status Admit Date Endometrial hyperplasia with out atypia acute January 17, 2025 12 :49pm Abnormal uterine bleeding acute February 16, 2025 11:50am Endometrial hyperplasia with out atypia acute February 16, 2025 1 1:50am Hypertension chronic February 16 11:50am [facility] Work Phone: 1(724) 749-536005-06-2025 Evaluation note* Diagnosis Onset Date Resolution Status Admit Date Endometrial hyperplasia with out atypia acute January 17, 2025 12 :49pm Abnormal uterine bleeding acute February 16, 2025 11:50am Endometrial hyperplasia with out atypia acute February 16, 2025 1 1:50am Hypertension chronic February 16 11:50am Abnormal uterine bleeding acute March 28, 2025 12:20pm Endometrial hyperplasia with out atypia acute March 28, 2025 12:20pm Status post hysteroscopy acute March 28, 2025 12:20pm Hypertension chronic March 28, 2 025 12:20pm [facility] Work Phone: Consult note Author Sukh Hicks [facility] Note Date/Time March 28, 2025 3:15 pm [facility] Medical Records Department [address] [place] [address] Anesthesia Postop Eval I 03/28/251513 MR#: [id number] Acct: [id number] Name: CHRIS ARITA Rep #:[id number] : 1975 49 From: Sukh Hicks CRNA PCP: Dr. Marcin Bermeo MD Status:REG S DC Y Race: C Location: [place] [address] Anesthesia: Postop Eval I Current Vital Signs Temperature: 97.1 F Pulse Rate: 67 Blood Pressure: 133/82 Respiratory Rate: 20 Pulse Ox: 95 Oxygen Delivery Method: Room Air Assessment Airway patent: Yes Spontaneous unlabored respirations: Yes Mental status: Awake and Calm nausea: No Vomiting: No Anesthesia Complication: No Fluid Hydration Crystalloid volume administer (ml): 500 Total IV fluid infused: 500 Progress Note Anesthesia document: Postop Eval 1 completed: Yes 03/28/251514 <Electronically signed by Sukh quintero CRNA> Date _ Sukh Cummingsigner Signature: Date CC: ~ Signed [facility] Work Phone: Discharge summary Author Alissa Hartley [facility] Note Date/Time March 28, 2025 3:[address] [facility] Medical Records Department [address] [place] [address] Instructions for Home/Discharge Instructions 03/28/25 1446 MR#: [id number] Acct: [id number] Name: CHRIS ARITA Rep #:[id number] : 1975 49 From: Alissa ibrahim MD PCP: Dr. Marcin Bermeo MD Status:REG S DC Discharge Instructions DC O2, CPAP, BIPAP needs Home O2 Discharge instructions: No Dressing / Incision Discharge Activity: Return to Normal Activity, May Shower and May Take a Tub Bath (after 1 week) May resume sexual activity in: 1-2 weeks Weight Bearing Status: Weight bearing as tolerated Lifting Restrictions: none Dressing / Incision Call your doctor if you observe: Fever of 101 or Higher, Using more than 1 pad per hour, Shortness of breath and Uncontrolled pain Follow Up Care Please Follow Up With: Alissa Hartley MD When: Call [phone] to schedule appointment. Test Results: Test results from this visit will be discussed in further detail at your follow- up appointment, if applicable. Discharge Plan Admission Attending Provider: Alissa Hartley Primary Care Provider: Marcin Bermeo Instructions Print Language: Venezuelan Discharge Orders/Prescriptions Prescriptions: No Action amlodipine 5 mg tablet 5 mg PO DAILY Referrals / Follow Up: Marcin Bermeo MD [Primary Care Provider] - Disposition Disposition (needs filled in before D/C Order can be placed): Home, Self Care 03/28/25 4847<Electronically signed by Alissa Hartley MD>Alissa Hartley MD CC: Dr. Marcin Bermeo MD ~ Signed [facility] Work Phone: Reason for referral (narrative)No reason for referral information [facility] Work Phone: Summary Purpose Family History No Family History Records Found Relationship Condition Age at Onset Recorded Date/T porsche mother Malignant neoplasm of breast Unknown Brother (s) Status:Active Comments:4. A&W Daughter (s) Status:Active Comments:3. Father Status:Active Comments:In good health. 1942 Mother Status:Active Comments: d. 2000 from Breast Cancer Sister (s) Status:Active Comments:7. A&W Son (s) Status:Active Comments:1. Brother (s) Status:Active Comments:4. A&W Daughter (s) Status:Active Comments:3. Father Status:Active Comments:In good health. 1942 Mother Status:Active Comments: d. 2000 from Breast Cancer Sister (s) Status:Active Comments:7. A&W Son (s) Status:Active Comments:1. Brother (s) Status:Active Comments:4. A&W Daughter (s) Status:Active Comments:3. Father Status:Active Comments:In good health. 1942 Mother Status:Active Comments: d. 2000 from Breast Cancer Sister (s) Status:Active Comments:7. A&W Son (s) Status:Active Comments:1. Brother (s) Status:Active Comments:4. A&W Daughter (s) Status:Active Comments:3. Father Status:Active Comments:In good health. 1942 Mother Status:Active Comments: d. 2000 from Breast Cancer Sister (s) Status:Active Comments:7. A&W Son (s) Status:Active Comments:1. Brother (s) Status:Active Comments:4. A&W Daughter (s) Status:Active Comments:3. Father Status:Active Comments:In good health. 1942 Mother Status:Active Comments: d. 2000 from Breast Cancer Sister (s) Status:Active Comments:7. A&W Son (s) Status:Active Comments:1. Brother (s) Status:Active Comments:4. A&W Daughter (s) Status:Active Comments:3. Father Status:Active Comments:In good health. 1942 Mother Status:Active Comments: d. 2000 from Breast Cancer Sister (s) Status:Active Comments:7. A&W Son (s) Status:Active Comments:1. Brother (s) Status:Active Comments:4. A&W Daughter (s) Status:Active Comments:3. Father Status:Active Comments:In good health. 1942 Mother Status:Active Comments: d. 2000 from Breast Cancer Sister (s) Status:Active Comments:7. A&W Son (s) Status:Active Comments:1. Brother (s) Status:Active Comments:4. A&W Daughter (s) Status:Active Comments:3. Father Status:Active Comments:In good health. 1942 Mother Status:Active Comments: d. 2000 from Breast Cancer Sister (s) Status:Active Comments:7. A&W Son (s) Status:Active Comments:1. Brother (s) Status:Active Comments:4. A&W Daughter (s) Status:Active Comments:3. Father Status:Active Comments:In good health. 1942 Mother Status:Active Comments: d. 2000 from Breast Cancer Sister (s) Status:Active Comments:7. A&W Son (s) Status:Active Comments:1. Brother (s) Status:Active Comments:4. A&W Daughter (s) Status:Active Comments:3. Father Status:Active Comments:In good health. 1942 Mother Status:Active Comments: d. 2000 from Breast Cancer Sister (s) Status:Active Comments:7. A&W Son (s) Status:Active Comments:1. Brother (s) Status:Active Comments:4. A&W Daughter (s) Status:Active Comments:3. Father Status:Active Comments:In good health. 1942 Mother Status:Active Comments: d. 2000 from Breast Cancer Sister (s) Status:Active Comments:7. A&W Son (s) Status:Active Comments:1. Brother (s) Status:Active Comments:4. A&W Daughter (s) Status:Active Comments:3. Father Status:Active Comments:In good health. 1942 Mother Status:Active Comments: d. 2000 from Breast Cancer Sister (s) Status:Active Comments:7. A&W Son (s) Status:Active Comments:1. Brother (s) Status:Active Comments:4. A&W Daughter (s) Status:Active Comments:3. Father Status:Active Comments:In good health. b. 1942 Mother Status:Active Comments: d. 2000 from Breast Cancer Sister (s) Status:Active Comments:7. A&W Son (s) Status:Active Comments:1. Brother (s) Status:Active Comments:4. A&W Daughter (s) Status:Active Comments:3. Father Status:Active Comments:In good health. b. 1942 Mother Status:Active Comments: d. 2000 from Breast Cancer Sister (s) Status:Active Comments:7. A&W Son (s) Status:Active Comments:1. Advance Directives No Advanced Directives Records Found Advance Directive Response Recorded Date/ Time Do you have a Healthcare Power of Crisis Worker? No March 14, 2025 9:04am Chief Complaint and Reason for Visit Chief Complaint Admit Date repeat EMB per January 17, 2025 12:49p m Reason for Visit Admit Date Endometrial hyperplasia without atypia M 2024 12:49pm Chief Complaint Admit Date repeat EMB per January 17, 2025 12:49p m surgical consult February 16, 2025 11:50 am Reason for Visit Admit Date Endometrial hyperplasia without atypia M ay 2024 12:49pm Abnormal uterine bleeding February 16, 2025 11:50am Endometrial hyperplasia without atypia J [facility] 2024 11:50am Hypertension February 16, 2025 11:50 am Chief Complaint Admit Date repeat EMB per January 17, 2025 12:49p m surgical consult February 16, 2025 11:50 am PREOP February 21, 2025 10:0 7am Hysteroscopy,Dilation and Curettage March 28, 2025 12:17pm Hysteroscopy,Dilation and Curettage March 28, 2025 12:20pm Reason for Visit Admit Date Endometrial hyperplasia without atypia M ay 2024 12:49pm Abnormal uterine bleeding February 16, 2025 11:50am Endometrial hyperplasia without atypia J [facility] 2024 11:50am Hypertension February 16, 2025 11:50 am Abnormal uterine bleeding March 28 12:20pm Endometrial hyperplasia without atypia J reji 2024 12:20pm Status post hysteroscopy March 28, 2025 12:20pm Hypertension March 28, 2025 12:2 0pm Chief Complaint Admit Date repeat EMB per MH January 17, 2025 12:49p m surgical consult February 16, 2025 11:50 am PREOP February 21, 2025 10:0 7am Hysteroscopy,Dilation and Curettage March 28, 2025 12:17pm Hysteroscopy,Dilation and Curettage March 28, 2025 12:20pm 2 week post-op D&C April 10, 2025 8:31 am Additional Source Comments INFORMATION SOURCE (unrecogn ized section and content) DATE CREATED AUTHOR 11/30/2018 [facility] ([place]) DATE CREATED AUTHOR AUTHOR'S ORGANIZ ATION 03/08/2024 [facility] DATE CREATED AUTHOR AUTHOR'S ORGANIZ ATION 04/22/2025 [facility] Care Teams (unrecognized sec tion and content) Team Status: Inactive Member Role Status Dates Larisa Davis NP [employer] Attending Provider Active Start: January 17, 2025 End: January 17, 2025 Team Status: Inactive Member Role Status Dates Larisa Davis NP [employer] Attending Provider Active Start: January 17, 2025 End: January 17, 2025 Larisa Davis NP [employer] Referring Provider Active Start: January 17, 2025 End: January 17, 2025 Team Status: Inactive Member Role Status Dates Dr. Alissa Hartley MD Attending Provider Active Start: February 16, 2025 End: February 16, 2025 Team Status: Active Member Role/Relationship Status Dates Dr. Marcin Bermeo MD Primary Care Provider Active Team Status: Inactive Member Role/Relationship Status Dates Larisa Davis NP [employer] Attending Provider Active Start: January 17, 2025 End: January 17, 2025 Team Status: Inactive Member Role/Relationship Status Dates Larisa Davis NP [employer] Attending Provider Active Start: January 17, 2025 End: January 17, 2025 Larisa Davis NP [employer] Referring Provider Active Start: January 17, 2025 End: January 17, 2025 Team Status: Inactive Member Role/Relationship Status Dates Dr. Alissa Hartley MD Attending Provider Active Start: February 16, 2025 End: February 16, 2025 Team Status: Active Member Role/Relationship Status Dates Dr. Marcin Bermeo MD Primary Care Provider Active Start: February 21, 2025 End: February 21, 2025 Dr. Jim Brenner MD Attending Provider Active Start: February 21, 2025 End: February 21, 2025 Dr. Alissa Hartley MD Referring Provider Active Start: February 21, 2025 End: February 21, 2025 Team Status: Active Member Role/Relationship Status Dates Dr. Alissa Hartley MD Attending Provider Active Start: March 28, 2025 Dr. Alissa Hartley MD Referring Provider Active Start: March 28, 2025 Dr. Alissa Hartley MD Other Provider Active Start: March 28, 2025 Dr. Marcin Bermeo MD Primary Care Provider Active Start: March 28, 2025 Team Status: Inactive Member Role/Relationship Status Dates Dr. Alissa Hartley MD Attending Provider Active Start: March 28, 2025 End: March 28, 2025 Dr. Alissa Hartley MD Referring Provider Active Start: March 28, 2025 End: March 28, 2025 Dr. Marcin Bermeo MD Primary Care Provider Active Start: March 28, 2025 End: March 28, 2025 Team Status: Inactive Member Role/Relationship Status Dates Dr. Alissa Hartley MD Attending Provider Active Start: April 10, 2025 End: April 10, 2025 Dr. Marcin Bermeo MD Primary Care Provider Active Start: April 10, 2025 End: April 10, 2025 Dr. Marcin Bermeo MD Referring Provider Active Start: April 10, 2025 End: April 10, 2025 Goals (unrecognized section and content) Goals may be documented in a n alternate sectionGoals may be documented in an alternate section FOR RECORDS PERTAINING TO PATIENTS WHO ARE OR HAVE BEEN ENROLLED IN A CHEMICAL DEPENDENCY/SUBSTANCEABUSE PROGRAM, SOME INFORMATION MAY BE OMITTED. This clinical summary was aggregated from multiple sources. Caution should be exercised in using it in the provision of clinical care. This summary normalizes information from multiple sources, and as a consequence, information in this document may materially change the coding, format and clinical context of patient data. In addition, data may be omitted in some cases. CLINICAL DECISIONS SHOULD BE BASED ON THE PRIMARY CLINICAL RECORDS. [facility] provides no warranty or guarantee of the accuracy or completeness of information in this document.
== END | disposition home or self-care (01) ==
LOC: OPBI 08:02
PROVIDERS: PCP Family Medicine; Referring Provider Obstetrics & Gynecology; Visit Provider Obstetrics & Gynecology
DX: Z12.31 Encounter for screening mammogram for malignant neoplasm of breast (principal)
CPT/HCPCS: 77063; 77067